=== PATIENT | male | born 1955 | race Caucasian/White ===

== ENCOUNTER 2020-12-13 07:28 | Outpatient (REF) | payer MEDICARE, SELFPAY ==
[2020-12-13 08:31] LABS: Hematocrit 44.6 % (42-52); Mean Corpuscular HGB Conc 33.6 g/dl (31.0-36.0); Mean Corpuscular Hemoglobin 29.5 pg (27.0-33.0); Mean Corpuscular Volume 87.6 fL (80-98); Mean Platelet Volume 9.6 fL (9.4-12.4); Platelet Count 255 X10*3/uL (160-400); Red Blood Count 5.09 X10*6/uL (4.60-5.80); Red Cell Distribution Width 13.5 % (11.0-16.0); White Blood Count 7.7 X10*3/uL (4.8-10.8)
[2020-12-13 08:41] LABS: Estimated Average Glucose 186 mg/dL; Hemoglobin A1c % 8.1 %
[2020-12-13 08:54] LABS: Creatinine Urine 138.55 mg/dL; Microalbum/Creatinine Ratio Ur 29.5 ug/mg cr
[2020-12-13 09:04] LABS: Alanine Aminotransferase 21 U/L (0-40); Albumin Level 4.3 g/dL (3.5-5.0); Alkaline Phosphatase 47 U/L (39-117); Anion Gap 14 (12-20); Aspartate Amino Transferase 14 U/L (5-37); Bilirubin Total 0.7 mg/dL (0.0-1.0); Blood Urea Nitrogen 16 mg/dL (9-16); Calcium 9.3 mg/dL (8.4-10.2); Carbon Dioxide 26 mmol/L (22-29); Chloride 103 mmol/L (96-108); Cholesterol 181 mg/dL; Estimated Glomerular Filt Rate > 60; Glucose Fasting 132 mg/dL (60-99); HDL Cholesterol 44 mg/dL; LDL Cholesterol Calculated 109 mg/dl; Potassium 4.8 mmol/L (3.3-5.1); Sodium 138 mmol/L (135-145); Total Protein 6.1 g/dL (6.5-8.0); Triglycerides 144 mg/dL
[2020-12-13 09:12] LABS: Prostate Specific Antigen Scr 0.37 ng/mL (<0.05-4.0); TSH reflex Free T4 1.07 uIU/mL (0.32-4.0)
== END 2020-12-13 07:29 | disposition home or self-care (01) ==
LOC: HO.LAB 07:28
PROVIDERS: PCP Physician Assistant; Visit Provider Physician Assistant
DX: E11.65 Type 2 diabetes mellitus with hyperglycemia (principal); Z79.4 Long term (current) use of insulin; I10 Essential (primary) hypertension; Z12.5 Encounter for screening for malignant neoplasm of prostate
CPT/HCPCS: 36415; 80053; 80061; 82043; 83036; 84153; 84443; 85027

== ENCOUNTER 2021-07-14 07:04 | Outpatient (REF) | payer MEDICARE, SELFPAY ==
[2021-07-14 08:08] LABS: Hematocrit 44.1 % (42-52); Hemoglobin 14.8 g/dl (14.0-18.0); Mean Corpuscular HGB Conc 33.6 g/dl (31.0-36.0); Mean Corpuscular Hemoglobin 29.4 pg (27.0-33.0); Mean Corpuscular Volume 87.7 fL (80-98); Mean Platelet Volume 9.8 fL (9.4-12.4); Platelet Count 255 X10*3/uL (160-400); Red Blood Count 5.03 X10*6/uL (4.60-5.80); Red Cell Distribution Width 13.4 % (11.0-16.0); White Blood Count 8.5 X10*3/uL (4.8-10.8)
[2021-07-14 08:32] LABS: Alanine Aminotransferase 18 U/L (0-40); Albumin Level 4.3 g/dL (3.5-5.0); Alkaline Phosphatase 48 U/L (39-117); Anion Gap 14 (12-20); Aspartate Amino Transferase 10 U/L (5-37); Bilirubin Total 0.7 mg/dL (0.0-1.0); Blood Urea Nitrogen 22 mg/dL (9-16); Calcium 9.5 mg/dL (8.4-10.2); Carbon Dioxide 24 mmol/L (22-29); Chloride 104 mmol/L (96-108); Cholesterol 195 mg/dL; Estimated Glomerular Filt Rate > 60; Glucose Fasting 133 mg/dL (60-99); HDL Cholesterol 47 mg/dL; LDL Cholesterol Calculated 109 mg/dl; Potassium 4.6 mmol/L (3.3-5.1); Sodium 137 mmol/L (135-145); Total Protein 6.2 g/dL (6.5-8.0); Triglycerides 198 mg/dL
[2021-07-14 08:55] LABS: Prostate Specific Antigen Scr 0.39 ng/mL (<0.05-4.0); TSH reflex Free T4 1.47 uIU/mL (0.32-4.0)
[2021-07-14 09:46] LABS: Creatinine Urine 152.94 mg/dL; Microalbum/Creatinine Ratio Ur 20.2 ug/mg cr
== END 2021-07-14 07:05 | disposition home or self-care (01) ==
LOC: HO.LAB 07:04
PROVIDERS: PCP Physician Assistant; Visit Provider Physician Assistant
DX: E11.65 Type 2 diabetes mellitus with hyperglycemia (principal); I10 Essential (primary) hypertension; Z12.5 Encounter for screening for malignant neoplasm of prostate; Z79.4 Long term (current) use of insulin
CPT/HCPCS: 36415; 80053; 80061; 82043; 84153; 84443; 85027

== ENCOUNTER 2021-12-09 06:26 | Outpatient (REF) | payer MEDICARE, SELFPAY ==
[2021-12-09 07:04] LABS: Hematocrit 45.9 % (42.0-52.0); Hemoglobin 15.3 g/dl (14.0-18.0); Mean Corpuscular HGB Conc 33.3 g/dl (31.0-36.0); Mean Corpuscular Hemoglobin 29.2 pg (27.0-33.0); Mean Corpuscular Volume 87.6 fL (80.0-98.0); Mean Platelet Volume 9.3 fL (9.4-12.4); Platelet Count 284 X10*3/uL (160-400); Red Blood Count 5.24 X10*6/uL (4.60-5.80); White Blood Count 10.1 X10*3/uL (4.8-10.8)
[2021-12-09 07:42] LABS: Alanine Aminotransferase 15 U/L (0-40); Albumin Level 4.4 g/dL (3.5-5.0); Alkaline Phosphatase 51 U/L (39-117); Anion Gap 13 (12-20); Aspartate Amino Transferase 11 U/L (5-37); Bilirubin Total 0.4 mg/dL (0.0-1.0); Blood Urea Nitrogen 22 mg/dL (9-16); Carbon Dioxide 26 mmol/L (22-29); Chloride 105 mmol/L (96-108); Cholesterol 195 mg/dL; Estimated Glomerular Filt Rate > 60; Glucose Fasting 127 mg/dL (60-99); HDL Cholesterol 44 mg/dL; LDL Cholesterol Calculated 107 mg/dl; Potassium 4.2 mmol/L (3.3-5.1); Sodium 140 mmol/L (135-145); Total Protein 6.5 g/dL (6.5-8.0); Triglycerides 224 mg/dL
[2021-12-09 08:05] LABS: TSH reflex Free T4 1.72 uIU/mL (0.32-4.0)
[2021-12-09 08:20] LABS: Estimated Average Glucose 209 mg/dL; Hemoglobin A1c % 8.9 %
[2021-12-09 10:10] LABS: Microalbum/Creatinine Ratio Ur 24.8 ug/mg cr
== END 2021-12-09 06:27 | disposition home or self-care (01) ==
LOC: HO.LAB 06:26
PROVIDERS: PCP Physician Assistant; Visit Provider Physician Assistant
DX: I10 Essential (primary) hypertension (principal); E11.65 Type 2 diabetes mellitus with hyperglycemia; Z79.4 Long term (current) use of insulin
CPT/HCPCS: 36415; 80053; 80061; 82043; 83036; 84443; 85027

== ENCOUNTER 2021-12-22 10:09 | Outpatient (REF) | payer MEDICARE, SELFPAY ==
--- NOTE | ~2021-12-22 | US_ITS ---
EXAMINATION: US RETROPERITONEAL LIMITED (AORTA) CLINICAL INFORMATION: Screening. History of smoking.. COMPARISON: None TECHNIQUE: Minor-scale, color Doppler and spectral Doppler evaluation of the abdominal aorta. FINDINGS: The aorta is atherosclerotic. The measurements of the aorta in maximum AP and transverse dimensions respectively are as follows: Proximal: 2.9 x 2.8 cm. Mid: 2.3 x 2.4 cm. Distal: 1.7 x 1.7 cm. PSV: 84 cm/s. The measurements of the common iliac arteries in maximum AP and TRV dimensions are as follows: Right Common Iliac Artery: 1.1 x 1.0 cm. Left Common Iliac Artery: 1.1 x 1.1 cm. US/US aorta IMPRESSION: Negative for abdominal aortic aneurysm.
--- NOTE | ~2021-12-22 | US_ITS ---
EXAMINATION: COLOR-FLOW DUPLEX IMAGING OF THE UNILATERAL RIGHT LOWER EXTREMITY ARTERIAL SYSTEM. VELOCITY MEASUREMENTS THROUGHOUT THE FEMORAL ARTERIES Interventional Radiologist: Chirag Braswell M.D., F.S.I.R., F.A.C.R. CLINICAL INFORMATION: This is a 66-year-old male with a history of hypertension, smoking, hyperlipidemia, diabetes. Peripheral vascular disease. Claudication. TECHNIQUE: Color-flow duplex imaging with spectral waveform analysis was performed with velocity measurements in the right lower extremity only. RIGHT FEMORAL RUNOFF VELOCITIES: The right common femoral artery measures 261 cm/s and biphasic. The right profunda femoral artery is 294 cm/s and is biphasic. Right proximal superficial femoral artery measures 264 cm/s and biphasic. Mid superficial femoral artery is 123 cm/s and biphasic. Distal right superficial femoral artery measures 101 cm/s and is biphasic. Right popliteal velocity measures 97 cm/s and is biphasic. The posterior tibial artery velocity measures 123 cm/s and was biphasic. The anterior tibial artery velocity measures 21 cm/s and is monophasic. US/US arterial duplex LE RT IMPRESSION: 1. There are elevated velocities in the right common femoral artery, right profunda femoral artery and proximal right superficial femoral artery with biphasic waveforms. Turbulence is evident in the area. This is suspicious for hemodynamically significant stenosis. .
--- NOTE | ~2021-12-22 | US_ITS ---
EXAMINATION: US VENOUS ULTRASOUND WITH DOPPLER LOWER EXTREMITY, RIGHT CLINICAL INFORMATION: Right leg pain. COMPARISON: None TECHNIQUE: Ultrasound of the deep veins is performed from the hip to the calf with compression sonography and color and pulse Doppler assessment. Spectral analysis with color-flow imaging is performed. FINDINGS: There is normal venous compression and respiratory variation and augmented flow. The visualized common femoral vein, superficial femoral vein, profunda femoral vein, popliteal vein, and the trifurcation region shows no evidence of deep venous thrombosis. There is no significant popliteal fossa cyst. If the patient's symptoms persist, followup ultrasound in 5 days 7 days might be of value to exclude proximal propagation from a non-visualized calf vein. US/US venous duplex LE RT IMPRESSION: No DVT demonstrated in the right lower extremity.
== END 2021-12-22 10:10 | disposition home or self-care (01) ==
LOC: HO.US 10:09
PROVIDERS: PCP Physician Assistant; Visit Provider Physician Assistant
DX: I73.9 Peripheral vascular disease, unspecified (principal); I10 Essential (primary) hypertension; E78.5 Hyperlipidemia, unspecified; E11.9 Type 2 diabetes mellitus without complications; F17.200 Nicotine dependence, unspecified, uncomplicated
CPT/HCPCS: 76775; 93926; 93971

== ENCOUNTER → 2022-08-25 13:05 | Outpatient (BNVA) | payer MEDICARE, SELFPAY | PROVIDERS: PCP Physician Assistant; Visit Provider Nurse Practitioner Family | DX: Z12.11 Encounter for screening for malignant neoplasm of colon (principal) | CPT/HCPCS: 99202 ==

== ENCOUNTER 2022-11-17 10:27 | Day surgery (SDC) | payer MEDICARE, SELFPAY ==
[2022-11-10 15:48] VITALS: BMI 25.8
--- NOTE | 2022-11-17 10:42 | MHC.SHP ---
Pre-Procedural Eval Section A Date of Service: 11/17/22 Section B Chief Complaint: pos cologuard test Relevant Family History (Specify if Yes): No Relevant Social History: None Present Medications: see Short Stay Collaborative assessment Medical History: Significant History (hypertension, type 2 diabetes.) History of Previous Operations: No relevant previous surgery Allergies: Allergies Allergy/AdvReac Type Severity Reaction Status Date / Time No Known Allergies Allergy Verified 11/10/22 15:40 Review of Systems Sugical H&P ROS: Negative: Constitution, Cardiovascular, Respiratory, Neurological, Psychiatric, Hem-Onc, Allergic/Immunologic, Gastrointestinal, Genitourinary, Musculoskeletal, Integumentary, Endocrine and Eyes/Ears/Nose/Throat Exam Surgical H&P Exam: Normal: HEENT, Normal: Heart, Normal: Lungs, Normal: Extremities, Normal: Abdomen, Normal: Skin and Normal: Neurological Plan Diagnosis/Plan: Unchanged I have reviewed the history and physical and performed a pertinent physical examination on my patient. No changes have occurred unless specified. Time Spent With Patient Time: Total time managing care of this patient today ____ minutes.
[2022-11-17 10:48] VITALS: BP 127/85; PULSE 92; RESP 16; TEMP 36.2; O2SAT 96; BMI 25.0
[2022-11-17 10:49] LABS: Glucose, Whole Blood 180 mg/dL (60-115)
[2022-11-17] MEDS: Lactated Ringers 1,000 ML 50 ML IVCONT (10:54)
--- NOTE | 2022-11-17 11:28 | HO.ANESPROP2 ---
HPI - Anesthesia Eval Consult details Narrative: 67 yo male patient for Colonoscopy PMFSH Active Problems Active Problems: All Active Problems (Updated 11/17/22 @ 11:20 by Dot Tesfaye MD) HTN (hypertension) (Acute) Type 2 diabetes mellitus (Acute) Annual physical exam (Acute) HLD (hyperlipidemia) (Acute) Screening for AAA (abdominal aortic aneurysm) (Acute)- USS Negative for AAA Former cigarette smoker (Acute) Claudication of right lower extremity (Acute) Colon cancer screening (Acute) Positive colorectal cancer screening using Cologuard test (Acute) PVD Past Medical History Medical History Diabetes HTN (hypertension) Family History Family History Mother Hypertension Father Hypertension Stroke Family history of problems with anesthesia: No Surgical History Surgical History Hx of colonoscopy No pertinent past surgical history History of Problems with Anesthesia: No Social History Social History Housing: House Alcohol intake: former Patient Tobacco Use Status: Former Tobacco user Tobacco use type: Cigarette e-Cigarette/Vaping Use: Never Used Second Hand Smoke Exposure: No Substance Use Type: Marijuana Have you been hit, kicked, punched, or otherwise hurt by someone within the past year? If so, by whom?: No Are you DNR?: No Advance Directives: No Advance Directives Information Provided: Yes Advance Directives on File: No Recently lost weight without trying: No Eating poorly because of decreased appetite: No Nutrition Risks: No Nutritional Risk service: No Current occupational status: retired Current occupation: [employer]. Cognitive needs: No Hearing needs: No Vision needs: No Meds Allergies Allergy/AdvReac Type Severity Reaction Status Date / Time No Known Allergies Allergy Verified 11/10/22 15:40 Active Medications: Current Medications Lactated Ringer's (Lr) 1,000 mls @ 50 mls/hr IVCONT .Q20H KATHERIN Last Admin: 11/17/22 10:54 Dose: 50 mls/hr Home Medications Medication Instructions Recorded Confirmed Last Taken Type glimepiride 4 mg tablet 4 mg PO BID 12/03/20 11/10/22 Unknown History metformin 1,000 mg tablet 1,000 mg PO BID 12/03/20 11/10/22 Unknown History pen needle, diabetic 32 gauge x #50 ea 12/03/20 06/03/22 Unknown History insulin glargine 100 unit/mL (3 18 unit subcut BEDTIME 06/03/21 11/10/22 Unknown History mL) subcutaneous pen Exam Exam Date and Time: November 17, 2022 1128 Height,Weight and Vital Signs: Height 5 ft 7 in Weight 72.575 kg Last Vital Signs Temp 97.1 F 11/17/22 10:48 Pulse 92 11/17/22 10:48 Resp 16 11/17/22 10:48 BP 127/85 11/17/22 10:48 Pulse Ox 96 11/17/22 10:48 O2 Del Method 11/17/22 10:48 Pertinent Lab Results Pertinent Lab Results: Laboratory Tests 11/17/22 10:46 POC Glucose 180 H Airway Mallampati Class: II TM Dist: >3cm Neck ROM: Full Denture: Upper and Lower Heart: RRR Lungs: CTAB Assessment and Plan Assessment Anesthesia Assessment: Anesthesia Plan Discussed and Chart Reviewed Final Anesthetic Review Family History of Problems with Anesthesia: No History of Problems with Anesthesia: No NPO: Yes ASA Class: II Final Preanesthetic Review: No Changes in Pt Med Stat, Meds/Allgs Chart Reviewed, Consent Obtained/Reviewed and Anes Risks/Benef Reviewed Patient Risk: Intermediate Procedure Risk: Low Assessment/Block/Sedation in SS: Assess/Block/Sedation-SS Anesthetic Plan Anesthetic Plan: MAC: Disposition: Standard PACU
--- NOTE | 2022-11-17 11:56 | W.PM.OPN ---
Operative Note Operative Note Date of Service: 11/17/22 Narrative: Operative Information Procedure Description: Colonoscopy Indication: pos cologuard test Anesthesia: MAC COLONOSCOPY Instrument: Olympus variable stiffness pediatric scope 190L Colonoscopy Monitoring: Vital signs and clinical assessment, continuous EKG monitoring, Pulse oximetry, Carbon Dioxide monitoring and blood pressure monitoring were done throughout the procedure. Colon withdrawal time was 9 minutes. Procedure: The patient was placed in the left lateral decubitis position and pre-procedure medications were administered. After a digital rectal examination of the ano-rectum, the video colonoscope was inserted into the rectum and advanced through the colon to the cecum/TI. The colonoscope was slowly withdrawn in a retrograde panoramic fashion and the colon mucosa was carefully examined including a retroflexed view of the rectum. Findings and interventions are described below. Procedure Difficulty: easy Findings: Terminal Ileum-normal Cecum:normal Ascending Colon: few diverticula noted Transverse Colon -normal Descending Colon:normal Sigmoid Colon: moderate diverticulosis, 8-10 mm sessile polyp removed with cold snare Rectum: Retroflexion with small internal hemorrhoids, grade I Anorectum - normal Colon preparation: [place] Bowel Preparation Scale Right colon; 2 Transverse colon: 2 Left colon; 2 (0 = Unprepared colon segment with mucosa not seen due to solid stool that cannot be cleared. 1 = Portion of mucosa of the colon segment seen, but other areas of the colon segment not well seen due to staining, residual stool and/or opaque liquid. 2 = Minor amount of residual staining, small fragments of stool and/or opaque liquid, but mucosa of colon segment seen well. 3 = Entire mucosa of colon segment seen well with no residual staining, small fragments of stool or opaque liquid) Impression and Post Procedure Diagnosis: polyp internal hemorrhoids diverticular disease Plan: High fiber diet leaflet Avoid straining at stool, epsom salts and sitz bath, anusol supps or cream Repeat Colonoscopy in 5 years due to polyp removed today or earlier if clinically indicated Above findings were reviewed with the patient and relevant handouts were provided if indicated.
[2022-11-17 12:01] VITALS: BP 100/57; PULSE 77; RESP 16; TEMP 36.2; O2SAT 98
[2022-11-17 12:16] VITALS: BP 151/71; PULSE 71; RESP 18; TEMP 36.4; O2SAT 97
== END 2022-11-17 12:37 | disposition home or self-care (01) ==
PROVIDERS: PCP Physician Assistant; Visit Provider Internal Medicine Gastroenterology
PROC: 0DJD8ZZ Inspection of Lower Intestinal Tract, Via Natural or Artificial Opening Endoscopic (ICD-10-PCS; CPT 45378; principal; 2022-11-17 12:10)
DX: R19.5 Other fecal abnormalities (principal); D12.5 Benign neoplasm of sigmoid colon; K57.30 Diverticulosis of large intestine without perforation or abscess without bleeding; K64.0 First degree hemorrhoids; E78.5 Hyperlipidemia, unspecified; I10 Essential (primary) hypertension; E11.8 Type 2 diabetes mellitus with unspecified complications; Z79.4 Long term (current) use of insulin; Z79.899 Other long term (current) drug therapy; F12.90 Cannabis use, unspecified, uncomplicated; Z87.891 Personal history of nicotine dependence
CPT/HCPCS: 45385; 82947; 88305

== ENCOUNTER 2022-11-27 06:46 | Outpatient (REF) | payer MEDICARE, SELFPAY ==
[2022-11-27 08:00] LABS: Estimated Average Glucose 214 mg/dL; Hemoglobin A1c % 9.1 %
[2022-11-27 08:14] LABS: Alanine Aminotransferase 16 U/L (0-40); Anion Gap 15 (12-20); Aspartate Amino Transferase 10 U/L (5-37); Blood Urea Nitrogen 16 mg/dL (9-16); Calcium 9.8 mg/dL (8.4-10.2); Carbon Dioxide 27 mmol/L (22-29); Chloride 104 mmol/L (96-108); Estimated Glomerular Filt Rate > 60; Glucose Random 242 mg/dL (60-115); Potassium 4.7 mmol/L (3.3-5.1); Sodium 141 mmol/L (135-145)
[2022-11-27 08:37] LABS: Vitamin B12 880 pg/mL (200-900)
== END 2022-11-27 06:47 | disposition home or self-care (01) ==
LOC: HO.LAB 06:46
PROVIDERS: PCP Physician Assistant; Visit Provider Internal Medicine Endocrinology, Diabetes & Metabolism
DX: E11.40 Type 2 diabetes mellitus with diabetic neuropathy, unspecified (principal)
CPT/HCPCS: 36415; 80048; 82607; 83036; 84450; 84460

== ENCOUNTER → 2022-12-01 08:01 | Outpatient (BNVA) | payer MEDICARE, SELFPAY | PROVIDERS: PCP Physician Assistant; Visit Provider Nurse Practitioner Family | DX: K57.30 Diverticulosis of large intestine without perforation or abscess without bleeding (principal); D12.5 Benign neoplasm of sigmoid colon; Z98.890 Other specified postprocedural states | CPT/HCPCS: 99212 ==

== ENCOUNTER 2023-01-28 06:12 | Outpatient (REF) | payer MEDICARE, SELFPAY ==
[2023-01-28 07:32] LABS: Hematocrit 43.5 % (42.0-52.0); Hemoglobin 14.8 g/dl (14.0-18.0); Mean Corpuscular Volume 88.2 fL (80.0-98.0); Mean Platelet Volume 9.8 fL (9.4-12.4); Platelet Count 265 X10*3/uL (160-400); Red Blood Count 4.93 X10*6/uL (4.60-5.80); Red Cell Distribution Width 13.3 % (11.0-16.0); White Blood Count 10.3 X10*3/uL (4.8-10.8)
[2023-01-28 08:02] LABS: Microalbum/Creatinine Ratio Ur 66.6 ug/mg cr
[2023-01-28 08:04] LABS: Alanine Aminotransferase 20 U/L (0-40); Albumin Level 4.3 g/dL (3.5-5.0); Alkaline Phosphatase 55 U/L (39-117); Anion Gap 13 (12-20); Aspartate Amino Transferase 11 U/L (5-37); Bilirubin Total 0.5 mg/dL (0.0-1.0); Blood Urea Nitrogen 23 mg/dL (9-16); Calcium 9.7 mg/dL (8.4-10.2); Carbon Dioxide 28 mmol/L (22-29); Chloride 105 mmol/L (96-108); Cholesterol 176 mg/dL; Estimated Glomerular Filt Rate > 60; Glucose Fasting 181 mg/dL (60-99); HDL Cholesterol 42 mg/dL; LDL Cholesterol Calculated 75 mg/dl; Potassium 4.8 mmol/L (3.3-5.1); Sodium 141 mmol/L (135-145); Total Protein 6.1 g/dL (6.5-8.0); Triglycerides 298 mg/dL
== END 2023-01-28 06:13 | disposition home or self-care (01) ==
LOC: HO.LAB 06:12
PROVIDERS: PCP Physician Assistant; Visit Provider Physician Assistant
DX: E78.2 Mixed hyperlipidemia (principal)
CPT/HCPCS: 36415; 80053; 80061; 82043; 85027

== ENCOUNTER 2023-07-19 08:20 | Outpatient (AMB) | payer MEDICARE, SELFPAY ==
--- NOTE | 2023-07-19 08:23 | A.OFFPC_ITS ---
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 Operator Required: No Accompanied by: Self / Same As Patient Allergies No Known Allergies Allergy (Verified 07/19/23 08:32) Medication List - Last Reconciled 07/19/23 by Kyle Guthrie PA-C glimepiride 4 mg PO BID insulin glargine 18 units subcut BEDTIME lisinopril 20 mg PO DAILY metformin 1,000 mg PO BID pen needle, diabetic As directed simvastatin 10 mg PO DAILY 90 days Tobacco use date assessed: 01/20/23 Fall risk assessment: No Falls in past year Last assessed Fall Risk: 07/19/23 Dental Screening Dental Screen Date: 07/19/23 Did you have a dental visit in the last 12 months?: No Did you have a dental problem in the last 6 months where you did not have access to dental care?: No Was dental information given to patient?: Patient has dentist HPI f/u HTN/ DMII HPI Details Patient is a 67-year-old male here today for a follow-up visit.? Henrietta t has a past medical history significant for hypertension, type 2 diabetes. Concern--> reports having two ? Viral illnesses over the last 3 months that has caused him to lose 10 lb. Currently feeling better. ..DMII:? Patient is followed by [facility] endocrinology, not using continues glucose monitoring and has been having better glucose control. Has recently reduced his Lantus dose to 12 units. He is considering getting off on metformin. Does report having easy like fatigue ?? Neural claudication. Has been better since using warm compress over his legs Patient has follow-up with vascular and noted to have abnormal pulses.? Was sent for CT angiogram of lower extremity ? ..HTN: Blood pressure acceptable today in office.? Denies any chest discomfort, headaches, vision issues shortness of breath. PLAN: Advised to monitor blood pressures at home and if consistently above 140/90 will consider increase his lisinopril to 30 mg ..HLD:? Continues on statin therapy with out any side effect.? Most recent LDL at 107. Recent Cologuard was positive thus got colonoscopy in November of 2022 showing diverticular disease , tubular adenoma polyp , repeat 5 years Laboratory Tests 01/28/23 06:21 Creatinine 1.20 Triglycerides 298 Cholesterol 176 [facility] Medical History Diverticulosis Tubular adenoma HTN (hypertension) Diabetes Surgical History Hx of colonoscopy No pertinent past surgical history Family History Mother Hypertension Father Hypertension Stroke Social History Housing: House Alcohol intake: former Patient Tobacco Use Status: Former Tobacco user Tobacco use type: Cigarette e-Cigarette/Vaping Use: Never Used Second Hand Smoke Exposure: No Substance Use Type: Marijuana service: No Current occupational status: retired Current occupation: [email or web address]. Cognitive needs: No Hearing needs: No Vision needs: Yes Questionnaire Thrive Questionnaire Date Thrive assessed: 01/20/23 DEJAH-7 AMB Questionnaire DEJAH-7 Date DEJAH - 7 assessed: 01/20/23 Source: Developed by Drs. Uziel David, Ale Lea, Juan Carlos Evans and colleagues, with an educational jeaneth from [employer]. Review of Systems Const Denies headache(s) Eyes Denies loss of vision ENT Denies vertigo, Denies dizziness, Denies headache(s) and Denies sore throat Card Denies chest pain, Denies leg edema and Denies lightheadedness Resp Denies cough, Denies hemoptysis and Denies wheezing GI Denies abdominal pain, Denies melena, Denies constipation, Denies diarrhea and Denies vomiting Denies dysuria, Denies urinary frequency and Denies urinary urgency Musc Denies arthralgias, Denies joint swelling, Denies numbness and Denies tingling Neuro Denies Abnormal speech present, Denies behavioral changes, Denies vertigo, Denies dizziness, Denies headache(s), Denies loss of vision, Denies memory loss, Denies numbness and Denies tingling Psych Denies anxiety, Denies behavioral changes, Denies depression, Denies memory loss and Denies panic attacks Ramin/Lymph Denies easy bleeding and Denies easy bruising Aller/Immun Denies wheezing Physical exam (Primary Care) Vital Signs: Last Vital Signs Pulse 68 07/19/23 08:24 BP 130/64 07/19/23 08:24 Pulse Ox 97 07/19/23 08:24 Oxygen Delivery Method Room Air 07/19/23 08:24 BMI result Body Mass Index 23.8 Tobacco/Smoking Status: Tobacco use Status Tobacco use date assessed 01/20/23 07/19/23 08:30 Patient Tobacco Use Status Former Tobacco user 07/19/23 08:30 Tobacco use type Cigarette 07/19/23 08:30 e-Cigarette/Vaping Use Never Used 07/19/23 08:30 Thrive Assessment: Date of Thrive Assessment Date Thrive assessed 01/20/23 07/19/23 08:30 Const General: healthy appearing, no acute distress, alert and awake Nutritional Appearance: well nourished Orientation/consciousness: oriented to person, oriented to place and oriented to time HENMT Ears: TM's normal bilaterally General nose exam: Normal nasal mucous membranes and turbinates present Eyes Conjunctivae: conjunctivae normal Sclerae: sclerae normal Pupils: Equal, round and reactive pupils present Neck Neck: Yes no lymphadenopathy and Yes no JVD Thyroid: Thyroid normal Carotids: no bruits Resp Effort & Inspection: normal respiratory effort and not tachypneic Auscultation: no crackles, no rales, no rhonchi and no wheezes Cardio Rate: regular rate Rhythm: regular rhythm Heart sounds: no murmurs and normal S1 and S2 GI Palpation (GI): Soft to palpation, nontender, no hepatomegaly and no splenomegaly Auscultation: normal bowel sounds Skin General skin exam: no rashes or lesions noted and dry skin Neuro General: oriented to person, oriented to place and oriented to time Cranial nerves: Yes Equal, round and reactive pupils present Speech: No Abnormal speech present Gait exam (Neuro): Normal gait present Motor exam (neuro): no tremor noted Extrem Right upper extremity: full ROM Left upper extremity: full ROM Right lower extremity: full ROM; no edema Left lower extremity: full ROM; no edema Psych Mental Status: mental status grossly normal Speech and movement: Normal speech and movement present Affect: normal affect Attitude: cooperative Thought process: Normal thought process present Office Procedures Flu Questionnaire Does the patient have a severe egg allergy?: No Results AMB Hemoglobin A1c AMB Hemoglobin A1c 7.5 % Last Edit by STEPHANIE Najera on 07/19/23 08:3 3 Immunizations flu vacc [id number] 6mos up(PF) 60 mcg(15 mcgx4)/0.5 mL IM syringe Performing Provider: Kyle Guthrie PA-C [facility] [place] [facility] Documented (not given) by: STEPHANIE Najera on 07/19/23 08:56 Reason Not Given: Patient Refused Results Reviewed Results Reviewed: Laboratory Last Values Hgb A1c (Clinic) 7.5 % (4.0-6.0) H 07/19/23 08:23 Assessment and Plan Assessment & Plan (1) HTN (hypertension): Code(s): I10 - Essential (primary) hypertension Qualifiers: Hypertension type: essential hypertension Qualified Code(s): I10 - Essential (primary) hypertension Plan: Patient's blood pressure today in office acceptable. He has not been monitoring blood pressure at home. He denies any headaches, vision issues, chest pains or palpitations. Goal blood pressures to remain below 140/90 (2) Type 2 diabetes mellitus: Code(s): E11.9 - Type 2 diabetes mellitus without complications Qualifiers: Diabetes mellitus rn long term care insulin use: with rn long term care use Diabetes mellitus complication status: with hyperglycemia Qualified Code(s): E11.65 - Type 2 diabetes mellitus with hyperglycemia; Z79.4 - jail (current) use of insulin Plan: Patient followed by endocrinology (Dr Huston) .. Started using a continues glucose monitorf Today's A1c at 7.5.. He reports he has been a diabetic diet. Has reduced his Lantus dose to 12 units. Will continue to follow Endocrinology for management of his diabetes. Goal A1c to be below 7.0 (3) HLD (hyperlipidemia): Code(s): E78.5 - Hyperlipidemia, unspecified Qualifiers: Hyperlipidemia type: mixed hyperlipidemia Qualified Code(s): E78.2 - Mixed hyperlipidemia Plan: Patient continues on statin therapy without side effect. Continues to have his fasting lipid panel and his Endocrinology group. Goal LDL to be below 100 Orders: Orders AMB Hemoglobin A1c Today E11.9 - Type 2 diabetes mellitus without complications Influenza [id number] Immunization Today Z23 - Encounter for immunization Prostate Specific Antigen Scr Today Z12.5 - Encounter for screening for malignant neoplasm of prostate Coding Level of Care Code Est Pt Level 4 (88628) Diagnoses Essential hypertension I10 Hypertension type: essential hypertension Type 2 diabetes mellitus with hyperglycemia, with long-term current use of insulin E11.65; Z79.4 Diabetes mellitus rn long term care insulin use: with rn long term care use Diabetes mellitus complication status: with hyperglycemia Mixed hyperlipidemia E78.2 Hyperlipidemia type: mixed hyperlipidemia
[2023-07-19 08:24] VITALS: BP 130/64; PULSE 68; O2SAT 97; BMI 23.8
== END 2023-07-19 08:54 | disposition home or self-care (01) ==
PROVIDERS: Visit Provider Physician Assistant
DX: I10 Essential (primary) hypertension (principal); E11.65 Type 2 diabetes mellitus with hyperglycemia; Z79.4 Long term (current) use of insulin; E78.2 Mixed hyperlipidemia; Z23 Encounter for immunization; E11.9 Type 2 diabetes mellitus without complications
CPT/HCPCS: 83036; 90471; 99214

== ENCOUNTER 2023-07-27 08:14 | Outpatient (REF) | payer MEDICARE, SELFPAY | END 2023-07-27 08:15 | disposition home or self-care (01) | LOC: HO.LAB 08:14 | PROVIDERS: PCP Physician Assistant; Visit Provider Physician Assistant | DX: Z12.5 Encounter for screening for malignant neoplasm of prostate (principal) | CPT/HCPCS: 36415; 84153 ==

== ENCOUNTER 2024-01-17 08:09 | Outpatient (AMB) | payer MEDICARE, SELFPAY ==
[2024-01-17 08:18] VITALS: BP 158/72; PULSE 78; O2SAT 98; BMI 25.2
--- NOTE | 2024-01-17 08:18 | MHC.PC.OV ---
Vital Signs 01/17/24 08:18 Height 5 ft 7 in Weight 161 lb BMI 25.2 BP 158/72 H Blood Pressure Location Lt brachial Position Sitting Pulse 78 Pulse Source Pulse Oximeter Pulse Oximetry (%) 98 Oxygen Delivery Method Room Air Intake Visit Reasons: PE Allergies No Known Allergies Allergy (Verified 01/17/24 08:29) Medication List - Last Reconciled 01/17/24 by Kyle Guthrie PA-C glimepiride 4 mg PO BID insulin glargine 18 units subcut BEDTIME lisinopril 20 mg PO DAILY metformin 1,000 mg PO BID pen needle, diabetic As directed simvastatin 10 mg PO DAILY 90 days Tobacco use date assessed: 01/17/24 Fall risk assessment: 2 + Falls in past year Last assessed Fall Risk: 01/17/24 Dental Screening Dental Screen Date: 01/17/24 Did you have a dental visit in the last 12 months?: Yes Did you have a dental problem in the last 6 months where you did not have access to dental care?: No Was dental information given to patient?: Patient has dentist HPI PE HPI Details Patient is a 68-year-old male here today for a annual physical.? Patient has a past medical history significant for hypertension, type 2 diabetes. Concern--> reports he continues to have lower extremity weakness upon exertion. Has had a few falls over last 6 months during physical exertion. He reports he was skiing and did fall due to weakness in his legs. ..DMII:? Patient is followed by [facility] endocrinology, Todays A1c 7.3, Report getting blood sugars are 180 -200s.? Does report having easy like fatigue ?? Neural claudication. Has been better since using warm compress over his legs Patient has follow-up with vascular and noted to have abnormal pulses.? Was sent for CT angiogram of lower extremity ? ..HTN: Does check his blood pressure at home and reports normal readings of 120-130 systolic.? Today in office blood pressure slightly elevated.? Denies any chest discomfort, headaches, vision issues shortness of breath. PLAN: Advised to monitor blood pressures at home and if consistently above 140/90 will consider increase his lisinopril to 30 mg .. HLD:? Continues on statin therapy without any side effect.? Most recent LDL at 107. Recent Cologuard was positive thus got colonoscopy in November of 2022 showing diverticular disease , tubular adenoma polyp , repeat 5 years Vaccines: Up-to-date with COVID vaccine, pneumonia and tetanus vaccine, considering shingles vaccine PFSH Medical History Diverticulosis Tubular adenoma HTN (hypertension) Diabetes Surgical History Hx of colonoscopy No pertinent past surgical history Family History Mother Hypertension Father Hypertension Stroke Social History Housing: House Alcohol intake: former Patient Tobacco Use Status: Former Tobacco user Tobacco use type: Cigarette e-Cigarette/Vaping Use: Never Used Second Hand Smoke Exposure: No Substance Use Type: Marijuana service: No Current occupational status: retired Current occupation: [employer]. Cognitive needs: No Hearing needs: No Vision needs: Yes Questionnaire PHQ-9 Over the last 2 weeks, how often have you been bothered by any of the following problems? 1. Little interest or pleasure in doing things: not at all 2. Feeling down, depressed, or hopeless: not at all 3. Trouble falling or staying asleep, or sleeping too much: not at all 4. Feeling tired or having little energy: not at all 5. Poor appetite or overeating: not at all 6. Feeling bad about yourself - or that you are a failure or have let yourself or your family down: not at all 7. Trouble concentrating on things, such as reading the newspaper or watching television: not at all 8. Moving or speaking so slowly that other people could have noticed. Or the opposite - being so fidgety or restless that you have been moving around a lot more than usual: not at all 9. Thoughts that you would be better off or of hurting yourself in some way: not at all Total score: 0 Depression Screening Interpretation: Negative Depression Screening Done: Yes 05842 - PHQ-9 Billing: Yes Source: Developed by Drs. Uziel David, Ale Lea, Juan Carlos Evans and colleagues, with an educational jeaneth from [employer]. Thrive Questionnaire Date Thrive assessed: 01/17/24 I am a: Patient What is your living situation today?: I have a steady place to live Within the past 12 months, did the food you bought not last and you didn't have the money to get more?: Never true Within the past 12 months, did you worry whether your food would run out before you got money to buy more?: Never true Do you have trouble paying for medicines?: No Do you have trouble getting transportation to medical appointments?: No Do you have trouble paying your heating and electricity bill?: No Do you have trouble taking care of your child, family member or friend?: No Do you have trouble with day-to-day activities such as bathing, preparing meals, shopping, managing finances, etc.?: No Are you currently unemployed and looking for a job?: No Are you interested in more education?: No Currently or been in a relationship where the following occur: no concerns reported THRIVE Score: 0 AUDIT C Alcohol Use Questionnaire (AUDIT-C) 1. How often do you have a drink containing alcohol?: Never Total Score: 0 DEJAH-7 AMB Questionnaire DEJAH-7 Date DEJAH - 7 assessed: 01/17/24 Feeling nervous, anxious, or on edge: 0 = Not at all Not being able to stop or control worryin = Not at all Worrying too much about different things: 0 = Not at all Trouble relaxin = Not at all Being so restless that it is hard to sit still: 0 = Not at all Becoming easily annoyed or irritable: 0 = Not at all Feeling afraid as if something awful might happen: 0 = Not at all Total DEJAH-7 score (0-4 normal; 5-9 mild; 10-14 moderate; 15-21 severe): 0 Source: Developed by Drs. Uziel David, Ale Lea, Juan Carlos Evans and colleagues, with an educational jeaneth from [employer]. DEJAH-7 Assessment Billing DEJAH-7 Assessment Tool: DEJAH-7 Assessment 20530 Review of Systems Const Denies body aches, Denies chills, Denies excessive sweating, Denies fatigue, Denies fever(s) and Denies headache(s) Eyes Denies blurry vision ENT Denies dysphagia, Denies vertigo, Denies dizziness, Denies headache(s), Denies hearing loss and Denies tinnitus Card Denies chest pain, Denies chest pain with activity, Denies syncope, Denies irregular heart rhythm and Denies dyspnea Resp Denies chest congestion, Denies cough, Denies hemoptysis, Denies dyspnea and Denies wheezing GI Denies abdominal pain, Denies melena, Denies hematochezia, Denies coffee ground emesis, Denies dysphagia, Denies diarrhea, Denies nausea and Denies vomiting Denies difficulty urinating, Denies dysuria, Denies urinary frequency, Denies urinary hesitancy and Denies urinary urgency Musc Denies arthralgias, Denies limited range of motion, Denies muscle cramps and Denies muscle weakness Skin/Breast Denies rash and Denies skin ulcer Neuro Denies Abnormal speech present, Denies confusion, Denies vertigo, Denies dizziness, Denies syncope, Denies headache(s), Denies memory loss and Denies seizure-like activity Psych Denies anxiety, Denies confusion, Denies depression, Denies memory loss, Denies panic attacks and Denies paranoia Endo Denies excessive sweating, Denies fatigue, Denies flushing, Denies polydipsia and Denies polyuria Aller/Immun Denies wheezing Physical exam (Primary Care) Vital Signs: Last Vital Signs Pulse 78 01/17/24 08:18 BP 158/72 H 01/17/24 08:18 Pulse Ox 98 01/17/24 08:18 Oxygen Delivery Method Room Air 01/17/24 08:18 BMI result Body Mass Index 25.2 Tobacco/Smoking Status: Tobacco use Status Tobacco use date assessed 01/17/24 01/17/24 08:20 Patient Tobacco Use Status Former Tobacco user 01/17/24 08:20 Tobacco use type Cigarette 01/17/24 08:20 e-Cigarette/Vaping Use Never Used 01/17/24 08:20 PHQ-9: PHQ-9 Score PHQ-9: Total score 0 01/17/24 08:31 Depression Screening Interpretation: Negative Thrive Assessment: Date of Thrive Assessment Date Thrive assessed 01/17/24 01/17/24 08:20 Currently or been in a relationship where the following occur: no concerns reported Const General: cooperative, comfortable, no acute distress, alert and awake; No confusion Orientation/consciousness: oriented to person, oriented to place, patient oriented x3 and No confusion HENMT Head: Yes normocephalic Ears: external ears normal and TM's normal bilaterally Face and sinus: No sinus tenderness Mouth: Normal oral and palatal mucosa present and tongue normal Teeth and gingiva: dentition normal and gingiva normal Throat: Yes posterior oropharynx normal, Yes tonsils normal and Yes uvula midline Eyes Conjunctivae: conjunctivae normal Sclerae: sclerae normal Pupils: Equal, round and reactive pupils present EOM: EOMs intact bilaterally Direct Ophthalmoscopy: No no photophobia Neck Neck: Yes no lymphadenopathy, No tender and Yes no JVD Thyroid: Thyroid normal Carotids: no bruits Chest Chest palpation & inspection: no tenderness Resp Effort & Inspection: normal respiratory effort, no audible wheezes, not labored and no stridor Auscultation: no crackles, no rales, no rhonchi and no wheezes Cardio Jugular venous distension: no JVD Rate: regular rate, not bradycardic and not tachycardic Rhythm: regular rhythm Bruits: no carotid bruits Peripheral pulses: Peripheral pulses 2+ throughout GI Inspection: Yes normal to inspection, No abdominal wall ecchymosis and No visible herniation Palpation (GI): Soft to palpation, nontender, no guarding, not rigid and No hepatosplenomegaly present Auscultation: normoactive bowel sounds General: Yes no CVA tenderness Back/Spine/Pelvis Back: no CVA tenderness and No back tenderness Cervical Spine: cervical ROM normal Thoracic/Lumbar Spine: thoracic and lumbar spine normal to inspection, straight leg raise negative bilaterally, No thoraco-lumbar ROM limited and No lumbar spinal tenderness Skin Lesions: no lesions Rashes: no rashes Wounds: no wounds Neuro General: oriented to person, oriented to place, patient oriented x3, CN's II-XI intact bilaterally and No confusion Cranial nerves: Yes Equal, round and reactive pupils present and Yes Normal accommodation reflex present Cognition (Neuro): normal cognition Speech: No Abnormal speech present Gait exam (Neuro): Normal gait present Motor exam (neuro): 5/5 motor strength present throughout Extrem Right upper extremity: full ROM; no cyanosis Left upper extremity: full ROM; no cyanosis Right lower extremity: no edema Left lower extremity: no edema Psych Appearance: grossly normal Mental Status: mental status grossly normal Affect: normal affect Attitude: cooperative Thought process: Normal thought process present Results AMB Hemoglobin A1c AMB Hemoglobin A1c 7.3 % Last Edit by France Garza CMA on 01/17/24 08:34 Assessment and Plan Assessment & Plan (1) Annual physical exam: Code(s): Z00.00 - Encounter for general adult medical examination without abnormal findings (2) HTN (hypertension): Code(s): I10 - Essential (primary) hypertension Qualifiers: Hypertension type: essential hypertension Qualified Code(s): I10 - Essential (primary) hypertension Plan: Patient's blood pressure today elevated today in office. He reports drinking 2 cups of coffee this morning. He has not been monitoring blood pressure at home. He denies any headaches, vision issues, chest pains or palpitations. Goal blood pressures to remain below 140/90 (3) Type 2 diabetes mellitus: Code(s): E11.9 - Type 2 diabetes mellitus without complications Qualifiers: Diabetes mellitus terminal clerk insulin use: with retirement use Diabetes mellitus complication status: with hyperglycemia Qualified Code(s): E11.65 - Type 2 diabetes mellitus with hyperglycemia; Z79.4 - terminal clerk (current) use of insulin Plan: Patient followed by endocrinology (Dr Huston) .. Started using a continues glucose monitorf Today's A1c at 7.3.. He reports he has been a diabetic diet. Has reduced his Lantus dose to 14 units. He has not using a continues glucose monitor and does report having some hypoglycemic episodes at night. Will continue to follow Endocrinology for management of his diabetes. Goal A1c to be below 7.0 (4) HLD (hyperlipidemia): Code(s): E78.5 - Hyperlipidemia, unspecified Qualifiers: Hyperlipidemia type: mixed hyperlipidemia Qualified Code(s): E78.2 - Mixed hyperlipidemia Plan: Patient continues on statin therapy without side effect. Continues to have his fasting lipid panel and his Endocrinology group. Goal LDL to be below 100 (5) Claudication of right lower extremity: Code(s): I73.9 - Peripheral vascular disease, unspecified Plan: Continues to have lower extremity symptoms of claudication. Was followed by vascular though not followed up for CT angiogram. Will try medication for claudication. He is considering reestablishing with vascular surgeon for further evaluation and treatment . Orders: Orders AMB Hemoglobin A1c Today E11.9 - Type 2 diabetes mellitus without complications Microalbumin, Random (w Creat) Today I10 - Essential (primary) hypertension Complete Blood Count no Diff Today E11.65 - Type 2 diabetes mellitus with hyperglycemia, Z79.4 - terminal clerk (current) use of insulin Prostate Specific Antigen Scr Today E78.2 - Mixed hyperlipidemia, Z12.5 - Encounter for screening for malignant neoplasm of prostate Comprehensive [place]. Panel Fast Today I10 - Essential (primary) hypertension Lipid Panel Today E78.2 - Mixed hyperlipidemia Medications: New cilostazol 100 mg PO BID 30 days 60 tabs 0RF I73.9 - Peripheral vascular disease, unspecified Changed From insulin glargine 18 units subcut BEDTIME E78.2 - Mixed hyperlipidemia To insulin glargine 14 units subcut BEDTIME E78.2 - Mixed hyperlipidemia Coding Level of Care Code Est Pt Prev Care >65y(46141) Diagnoses Annual physical exam Z00.00 Essential hypertension I10 Hypertension type: essential hypertension Type 2 diabetes mellitus with hyperglycemia, with long-term current use of insulin E11.65; Z79.4 Diabetes mellitus terminal clerk insulin use: with terminal clerk use Diabetes mellitus complication status: with hyperglycemia Mixed hyperlipidemia E78.2 Hyperlipidemia type: mixed hyperlipidemia Claudication of right lower extremity I73.9 Additional Codes DEJAH-7 Assessment Billing - DEJAH-7 Assessment Tool: DEJAH-7 Assessment 50243 ([id number])
== END 2024-01-17 08:58 | disposition home or self-care (01) ==
PROVIDERS: PCP Physician Assistant; Visit Provider Physician Assistant
DX: Z00.00 Encounter for general adult medical examination without abnormal findings (principal); E11.65 Type 2 diabetes mellitus with hyperglycemia; Z79.4 Long term (current) use of insulin; I73.9 Peripheral vascular disease, unspecified; E11.51 Type 2 diabetes mellitus with diabetic peripheral angiopathy without gangrene; I10 Essential (primary) hypertension; E78.2 Mixed hyperlipidemia
CPT/HCPCS: 83036; 99397

== ENCOUNTER 2024-01-21 06:18 | Outpatient (REF) | payer MEDICARE, SELFPAY ==
[2024-01-21 07:02] LABS: Hemoglobin 14.7 g/dl (14.0-18.0); Mean Corpuscular HGB Conc 33.4 g/dl (31.0-36.0); Mean Corpuscular Hemoglobin 29.4 pg (27.0-33.0); Mean Platelet Volume 9.6 fL (9.4-12.4); Platelet Count 246 X10*3/uL (160-400); Red Cell Distribution Width 13.3 % (11.0-16.0); White Blood Count 7.8 X10*3/uL (4.8-10.8)
[2024-01-21 07:20] LABS: Alanine Aminotransferase 14 U/L (0-40); Albumin Level 4.2 g/dL (3.5-5.0); Alkaline Phosphatase 44 U/L (39-117); Anion Gap 14 (12-20); Aspartate Amino Transferase 10 U/L (5-37); Bilirubin Total 0.4 mg/dL (0.0-1.0); Blood Urea Nitrogen 22 mg/dL (9-16); Calcium 9.4 mg/dL (8.4-10.2); Carbon Dioxide 24 mmol/L (22-29); Chloride 106 mmol/L (96-108); Cholesterol 156 mg/dL (<200); Estimated Glomerular Filt Rate > 60; Glucose Fasting 210 mg/dL (60-99); HDL Cholesterol 47 mg/dL (>40); LDL Cholesterol Calculated 81 mg/dL (<100); Potassium 4.4 mmol/L (3.3-5.1); Sodium 140 mmol/L (135-145); Total Protein 6.5 g/dL (6.5-8.0); Triglycerides 141 mg/dL (<150)
[2024-01-21 07:42] LABS: Prostate Specific Antigen Scr 0.31 ng/mL (<0.05-4.0)
[2024-01-21 08:06] LABS: Creatinine Urine 150.35 mg/dL; Microalbum/Creatinine Ratio Ur 81.8 ug/mg cr (<30)
== END 2024-01-21 06:19 | disposition home or self-care (01) ==
LOC: HO.LAB 06:18
PROVIDERS: PCP Physician Assistant; Visit Provider Physician Assistant
DX: E11.65 Type 2 diabetes mellitus with hyperglycemia (principal); I10 Essential (primary) hypertension; E78.2 Mixed hyperlipidemia; Z79.4 Long term (current) use of insulin; Z12.5 Encounter for screening for malignant neoplasm of prostate
CPT/HCPCS: 36415; 80053; 80061; 82043; 82570; 84153; 85027

== ENCOUNTER 2024-01-28 14:20 | Outpatient (AMB) | payer MEDICARE, SELFPAY ==
[2024-01-28 14:22] VITALS: BP 158/60; PULSE 94; O2SAT 95; BMI 25.1
--- NOTE | 2024-01-28 14:22 | HO.NEPHOV_ITS ---
Vital Signs 01/28/24 14:22 Height 5 ft 7 in Weight 160 lb 8 oz BMI 25.1 BP 158/60 H Blood Pressure Location Lt brachial Position Sitting Pulse 94 Pulse Source Pulse Oximeter Pulse Oximetry (%) 95 Oxygen Delivery Method Room Air Intake Visit Reasons: Proteinuria Manager Discovery Required: No Accompanied by: Self / Same As Patient Allergies No Known Allergies Allergy (Verified 01/28/24 14:24) HPI Comments Details: I had the pleasure of seeing Lionel in consultation for his mildly proteinuric CKD as well as hypertension. He has diabetes for a long time. He denies any retinopathy but complaints of lower extremity vascular symptoms. He denies any coronary artery disease, congestive heart failure, CVA, CHF, renal artery stenosis, carotid stenosis. He has no epistaxis, photosensitivity, joint swellings, skin rashes, hematuria or pedal edema. He has been tolerating EMMA inhibitor. He has not on any SGLT2 inhibitor. He denies any chest pain, shortness of breath, paroxysmal nocturnal dyspnea, orthopnea or orthostatic symptoms. He denied any family history of renal diseases. He denies any new bone pain or history of renal calculi. [facility] Medical History Diverticulosis Tubular adenoma HTN (hypertension) Diabetes Surgical History Hx of colonoscopy No pertinent past surgical history Family History Mother Hypertension Father Hypertension Stroke Social History Housing: House Alcohol intake: former Patient Tobacco Use Status: Former Tobacco user Tobacco use type: Cigarette e-Cigarette/Vaping Use: Never Used Second Hand Smoke Exposure: No Substance Use Type: Marijuana service: No Current occupational status: retired Current occupation: [employer]. Cognitive needs: No Hearing needs: No Vision needs: Yes Physical Exam Vital Signs: Last Vital Signs Pulse 94 01/28/24 14:22 BP 158/60 H 01/28/24 14:22 Pulse Ox 95 01/28/24 14:22 Oxygen Delivery Method Room Air 01/28/24 14:22 BMI result Body Mass Index 25.1 Const General: comfortable and no acute distress Orientation/consciousness: patient oriented x3 HEENT Head: Yes normocephalic Mouth: Normal oral and palatal mucosa present Eyes EOM: EOMs intact bilaterally Neck Neck: Yes supple Resp Auscultation: clear to auscultation bilaterally Cardio Jugular venous distension: no JVD Rate: regular rate GI Palpation (GI): Soft to palpation Auscultation: normal bowel sounds General: Yes no CVA tenderness Back/Spine/Pelvis Back: no CVA tenderness Skin General skin exam: no rashes or lesions noted Neuro General: patient oriented x3 and moves all extremities Extrem General: Yes no pedal edema Results Reviewed Nephrology Results: Hgb 14.7 g/dl (14.0-18.0) 01/21/24 WBC 7.8 X10*3/uL (4.8-10.8) 01/21/24 Plt Count 246 X10*3/uL (160-400) 01/21/24 Sodium 140 mmol/L (135-145) 01/21/24 Potassium 4.4 mmol/L (3.3-5.1) 01/21/24 Chloride 106 mmol/L (96-108) 01/21/24 Carbon Dioxide 24 mmol/L (22-29) 01/21/24 BUN 22 mg/dL (9-16) H 01/21/24 Creatinine 1.09 mg/dL (0.5-1.4) 01/21/24 Calcium 9.4 mg/dL (8.4-10.2) 01/21/24 Urine Creatinine 150.35 mg/dL 01/21/24 Assessment & Plan Assessment & Plan (1) HTN (hypertension): Code(s): I10 - Essential (primary) hypertension Category: Medical Qualifiers: Hypertension type: essential hypertension Qualified Code(s): I10 - Essential (primary) hypertension (2) Diabetic nephropathy associated with type 2 diabetes mellitus: Code(s): E11.21 - Type 2 diabetes mellitus with diabetic nephropathy Category: Medical (3) CKD (chronic kidney disease) stage 2, GFR 60-89 ml/min: Code(s): N18.2 - Chronic kidney disease, stage 2 (mild) Category: Medical Plan Lionel has 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 He is on EMMA inhibitor. We will continue to maximize his lisinopril if his renal functions , hemodynamics and serum potassium permit. He has a great candidate for SGLT2 inhibitor. I also plan to do Doppler of his renal arteries with time. I ordered blood work in follow-up. I increased his lisinopril to 30 mg daily. I asked him to avoid nonsteroidal anti-inflammatories and maintain good hydration. I answered all his questions. Follow-up appointment given. Orders: Orders Blood Urea Nitrogen 01/28/24 E11. - Type 2 diabetes mellitus with diabetic nephropathy, I10 - Essential (primary) hypertension Creatinine 01/28/24. - Type 2 diabetes mellitus with diabetic nephropathy, I10 - Essential (primary) hypertension Electrolytes 01/28/24. - Type 2 diabetes mellitus with diabetic nephropathy, I10 - Essential (primary) hypertension Protein Creatinine Ratio, Ur 01/28/24. - Type 2 diabetes mellitus with diabetic nephropathy, I10 - Essential (primary) hypertension Immunofixation Pnl, Serum 01/28/24. - Type 2 diabetes mellitus with diabetic nephropathy, I10 - Essential (primary) hypertension Medications: Changed From lisinopril 20 mg PO DAILY 90 tabs 3RF I10 - Essential (primary) hypertension To lisinopril 30 mg (1.5 x 20 mg) PO DAILY 90 tabs 3RF I10 - Essential (primary) hypertension Coding Level of Care Code New Pt Level 4 (77400) Diagnoses Essential hypertension I10 Hypertension type: essential hypertension Diabetic nephropathy associated with type 2 diabetes mellitus E11. CKD (chronic kidney disease) stage 2, GFR 60-89 ml/min N18.2
== END 2024-01-28 14:42 | disposition home or self-care (01) ==
PROVIDERS: PCP Physician Assistant; Referring Provider Physician Assistant; Visit Provider Internal Medicine Nephrology
DX: I12.9 Hypertensive chronic kidney disease with stage 1 through stage 4 chronic kidney disease, or unspecified chronic kidney disease (principal); E11.21 Type 2 diabetes mellitus with diabetic nephropathy; N18.2 Chronic kidney disease, stage 2 (mild)
CPT/HCPCS: 99204

== ENCOUNTER → 2024-01-28 14:20 | Outpatient (BNVA) | payer MEDICARE, SELFPAY | PROVIDERS: PCP Physician Assistant; Referring Provider Physician Assistant; Visit Provider Internal Medicine Nephrology | DX: I10 Essential (primary) hypertension (principal); E11.21 Type 2 diabetes mellitus with diabetic nephropathy | CPT/HCPCS: 99202 ==

== ENCOUNTER 2024-03-31 10:36 | Outpatient (AMB) | payer MEDICARE, SELFPAY ==
[2024-03-31 10:48] VITALS: BP 134/54; PULSE 71; O2SAT 97; BMI 23.9
--- NOTE | 2024-03-31 10:48 | HO.NEPHOV_ITS ---
Vital Signs 03/31/24 10:48 Height 5 ft 7 in Weight 152 lb 8 oz BMI 23.9 BP 134/54 L Blood Pressure Location Rt brachial Position Sitting Pulse 71 Pulse Source Pulse Oximeter Pulse Oximetry (%) 97 Oxygen Delivery Method Room Air Intake Visit Reasons: 2 mon follow up/ Conf Manager Sustainability Required: No Accompanied by: Self / Same As Patient Allergies No Known Allergies Allergy (Verified 03/31/24 10:50) HPI Comments Details: I had the pleasure of seeing Lionel in follow for his mildly proteinuric CKD as well as hypertension. He has diabetes for a long time. He denies any retinopathy but complaints of lower extremity vascular symptoms. He denies any coronary artery disease, congestive heart failure, CVA, CHF, renal artery stenosis, carotid stenosis. He has no epistaxis, photosensitivity, joint swellings, skin rashes, hematuria or pedal edema. He has been tolerating EMMA inhibitor. He is not on any SGLT2 inhibitor. He denies any chest pain, shortness of breath, paroxysmal nocturnal dyspnea, orthopnea or orthostatic symptoms. He denied any family history of renal diseases. He denies any new bone pain or history of renal calculi. [facility] Medical History Diverticulosis Tubular adenoma HTN (hypertension) Diabetes Surgical History Hx of colonoscopy No pertinent past surgical history Family History Mother Hypertension Father Hypertension Stroke Social History Housing: House Alcohol intake: former Patient Tobacco Use Status: Former Tobacco user Tobacco use type: Cigarette e-Cigarette/Vaping Use: Never Used Second Hand Smoke Exposure: No Substance Use Type: Marijuana service: No Current occupational status: retired Current occupation: [employer]. Cognitive needs: No Hearing needs: No Vision needs: Yes Physical Exam Vital Signs: Last Vital Signs Pulse 71 03/31/24 10:48 BP 134/54 L 03/31/24 10:48 Pulse Ox 97 03/31/24 10:48 Oxygen Delivery Method Room Air 03/31/24 10:48 BMI result Body Mass Index 23.9 Const General: comfortable and no acute distress Orientation/consciousness: patient oriented x3 HEENT Head: Yes normocephalic Mouth: Normal oral and palatal mucosa present Eyes EOM: EOMs intact bilaterally Neck Neck: Yes supple Resp Auscultation: clear to auscultation bilaterally Cardio Jugular venous distension: no JVD Rate: regular rate GI Palpation (GI): Soft to palpation Auscultation: normal bowel sounds General: Yes no CVA tenderness Back/Spine/Pelvis Back: no CVA tenderness Skin General skin exam: no rashes or lesions noted Neuro General: patient oriented x3 and moves all extremities Extrem General: Yes no pedal edema Results Reviewed Nephrology Results: Hgb 14.7 g/dl (14.0-18.0) 01/21/24 WBC 7.8 X10*3/uL (4.8-10.8) 01/21/24 Plt Count 246 X10*3/uL (160-400) 01/21/24 Sodium 140 mmol/L (135-145) 01/21/24 Potassium 4.4 mmol/L (3.3-5.1) 01/21/24 Chloride 106 mmol/L (96-108) 01/21/24 Carbon Dioxide 24 mmol/L (22-29) 01/21/24 BUN 22 mg/dL (9-16) H 01/21/24 Creatinine 1.09 mg/dL (0.5-1.4) 01/21/24 Calcium 9.4 mg/dL (8.4-10.2) 01/21/24 Urine Creatinine 150.35 mg/dL 01/21/24 Assessment & Plan Assessment & Plan (1) CKD (chronic kidney disease) stage 2, GFR 60-89 ml/min: Code(s): N18.2 - Chronic kidney disease, stage 2 (mild) Category: Medical (2) Diabetic nephropathy associated with type 2 diabetes mellitus: Code(s): E11.21 - Type 2 diabetes mellitus with diabetic nephropathy Category: Medical (3) HTN (hypertension): Code(s): I10 - Essential (primary) hypertension Category: Medical Qualifiers: Hypertension type: essential hypertension Qualified Code(s): I10 - Essential (primary) hypertension Plan Lionel has 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 He is on EMMA inhibitor. I increased his lisinopril to 20 mg bid . He has a great candidate for SGLT2 inhibitor. I also plan to do Doppler of his renal arteries with time. I ordered blood work in follow-up. I asked him to avoid nonsteroidal anti-inflammatories and maintain good hydration. I answered all his questions. Follow-up appointment given. Orders: Orders Creatinine 4 Months E11.21 - Type 2 diabetes mellitus with diabetic nephropathy, I10 - Essential (primary) hypertension, N18.2 - Chronic kidney disease, stage 2 (mild) Blood Urea Nitrogen 4 Months E11.21 - Type 2 diabetes mellitus with diabetic nephropathy, I10 - Essential (primary) hypertension, N18.2 - Chronic kidney disease, stage 2 (mild) Electrolytes 4 Months E11.21 - Type 2 diabetes mellitus with diabetic nephropathy, I10 - Essential (primary) hypertension, N18.2 - Chronic kidney disease, stage 2 (mild) Creatinine 1 Month E11.21 - Type 2 diabetes mellitus with diabetic nephropathy, I10 - Essential (primary) hypertension, N18.2 - Chronic kidney disease, stage 2 (mild) Blood Urea Nitrogen 1 Month E11.21 - Type 2 diabetes mellitus with diabetic nephropathy, I10 - Essential (primary) hypertension, N18.2 - Chronic kidney disease, stage 2 (mild) Electrolytes 1 Month E11.21 - Type 2 diabetes mellitus with diabetic nephropathy, I10 - Essential (primary) hypertension, N18.2 - Chronic kidney disease, stage 2 (mild) Protein Creatinine Ratio, Ur 1 Month E11.21 - Type 2 diabetes mellitus with diabetic nephropathy, I10 - Essential (primary) hypertension, N18.2 - Chronic kidney disease, stage 2 (mild) Protein Creatinine Ratio, Ur 4 Months E11.21 - Type 2 diabetes mellitus with diabetic nephropathy, I10 - Essential (primary) hypertension, N18.2 - Chronic kidney disease, stage 2 (mild) Coding Level of Care Code Est Pt Level 4 (65919) Diagnoses CKD (chronic kidney disease) stage 2, GFR 60-89 ml/min N18.2 Diabetic nephropathy associated with type 2 diabetes mellitus E11.21 Essential hypertension I10 Hypertension type: essential hypertension
== END 2024-03-31 11:08 | disposition home or self-care (01) ==
PROVIDERS: PCP Physician Assistant; Visit Provider Internal Medicine Nephrology
DX: I12.9 Hypertensive chronic kidney disease with stage 1 through stage 4 chronic kidney disease, or unspecified chronic kidney disease (principal); E11.22 Type 2 diabetes mellitus with diabetic chronic kidney disease; N18.2 Chronic kidney disease, stage 2 (mild)
CPT/HCPCS: 99214

== ENCOUNTER → 2024-03-31 10:36 | Outpatient (BNVA) | payer MEDICARE, SELFPAY | PROVIDERS: PCP Physician Assistant; Visit Provider Internal Medicine Nephrology | DX: I12.9 Hypertensive chronic kidney disease with stage 1 through stage 4 chronic kidney disease, or unspecified chronic kidney disease (principal); E11.22 Type 2 diabetes mellitus with diabetic chronic kidney disease; N18.2 Chronic kidney disease, stage 2 (mild); Z79.899 Other long term (current) drug therapy | CPT/HCPCS: 99212 ==

== ENCOUNTER 2024-04-27 07:27 | Outpatient (REF) | payer MEDICARE, SELFPAY ==
[2024-04-27 08:42] LABS: Anion Gap 12 (12-20); Blood Urea Nitrogen 22 mg/dL (9-16); Carbon Dioxide 26 mmol/L (22-29); Chloride 107 mmol/L (96-108); Estimated Glomerular Filt Rate > 60; Potassium 4.5 mmol/L (3.3-5.1); Sodium 140 mmol/L (135-145)
[2024-04-27 08:44] LABS: Creatinine Urine 131.23 mg/dL; Protein/Creatinine Ratio, Ur 0.17 (<0.2); Total Protein Urine Random 22 mg/dL (<12)
[2024-05-02 11:49] LABS: IgA 145 mg/dL (70-320); IgG 551 mg/dL (600-1540); IgM 25 mg/dL (50-300)
== END 2024-04-27 07:28 | disposition home or self-care (01) ==
LOC: HO.LAB 07:27
PROVIDERS: PCP Physician Assistant; Visit Provider Internal Medicine Nephrology
DX: E11.21 Type 2 diabetes mellitus with diabetic nephropathy (principal); E11.22 Type 2 diabetes mellitus with diabetic chronic kidney disease; I12.9 Hypertensive chronic kidney disease with stage 1 through stage 4 chronic kidney disease, or unspecified chronic kidney disease; N18.2 Chronic kidney disease, stage 2 (mild)
CPT/HCPCS: 36415; 80051; 82565; 82570; 82784; 84156; 84520; 86334

== ENCOUNTER 2024-06-23 10:55 | Outpatient (AMB) | payer MEDICARE, SELFPAY ==
[2024-06-23 11:15] VITALS: BP 140/60; PULSE 60; O2SAT 97; BMI 24.4
--- NOTE | 2024-06-23 11:15 | HO.NEPHOV ---
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 He has diabetes for a long time. He denies any retinopathy but complaints of lower extremity vascular symptoms. He denies any coronary artery disease, congestive heart failure, CVA, CHF, renal artery stenosis, carotid stenosis. He has no epistaxis, photosensitivity, joint swellings, skin rashes, hematuria or pedal edema. He has been tolerating EMMA inhibitor. He is not on any SGLT2 inhibitor. He denies any chest pain, shortness of breath, paroxysmal nocturnal dyspnea, orthopnea or orthostatic symptoms. He denied any family history of renal diseases. He denies any new bone pain or history of renal calculi. [facility] Medical History Diverticulosis Tubular adenoma HTN (hypertension) Diabetes Surgical History Hx of colonoscopy No pertinent past surgical history Family History Mother Hypertension Father Hypertension Stroke Social History Housing: House Alcohol intake: former Patient Tobacco Use Status: Former Tobacco user Tobacco use type: Cigarette e-Cigarette/Vaping Use: Never Used Second Hand Smoke Exposure: No Substance Use Type: Marijuana service: No Current occupational status: retired Current occupation: [employer]. Cognitive needs: No Hearing needs: No Vision needs: Yes Review of Systems Const All systems reviewed & are unremarkable except as noted in HPI and below Physical Exam Vital Signs: Last Vital Signs Pulse 60 06/23/24 11:15 BP 140/60 H 06/23/24 11:15 Pulse Ox 97 06/23/24 11:15 Oxygen Delivery Method Room Air 06/23/24 11:15 BMI result Body Mass Index 24.4 Const General: comfortable and no acute distress Orientation/consciousness: patient oriented x3 HEENT Head: Yes normocephalic Mouth: Normal oral and palatal mucosa present Eyes EOM: EOMs intact bilaterally Neck Neck: Yes supple Resp Auscultation: clear to auscultation bilaterally Cardio Jugular venous distension: no JVD Rate: regular rate GI Palpation (GI): Soft to palpation Auscultation: normal bowel sounds General: Yes no CVA tenderness Back/Spine/Pelvis Back: no CVA tenderness Skin General skin exam: no rashes or lesions noted Neuro General: patient oriented x3 and moves all extremities Extrem General: Yes no pedal edema Results Reviewed Nephrology Results: Hgb 14.7 g/dl (14.0-18.0) 01/21/24 WBC 7.8 X10*3/uL (4.8-10.8) 01/21/24 Plt Count 246 X10*3/uL (160-400) 01/21/24 Sodium 140 mmol/L (135-145) 04/27/24 Potassium 4.5 mmol/L (3.3-5.1) 04/27/24 Chloride 107 mmol/L (96-108) 04/27/24 Carbon Dioxide 26 mmol/L (22-29) 04/27/24 BUN 22 mg/dL (9-16) H 04/27/24 Creatinine 1.07 mg/dL (0.5-1.4) 04/27/24 Calcium 9.4 mg/dL (8.4-10.2) 01/21/24 Urine Creatinine 131.23 mg/dL 04/27/24 Protein/Creatinin Ratio 0.17 (<0.2) 04/27/24 Assessment & Plan Assessment & Plan (1) CKD (chronic kidney disease) stage 2, GFR 60-89 ml/min: Code(s): N18.2 - Chronic kidney disease, stage 2 (mild) Category: Medical Plan Lionel has 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 He is on MEMA inhibitor. His renal functions are stable. He should continue lisinopril 20 mg bid . He has a great candidate for SGLT2 inhibitor after discontinuing glimeperide. I also plan to do Doppler of his renal arteries with time. I ordered blood work in follow-up. I asked him to avoid nonsteroidal anti-inflammatories and maintain good hydration. I answered all his questions. Follow-up appointment given. Orders: Orders Electrolytes 6 Months N18.2 - Chronic kidney disease, stage 2 (mild) Creatinine 6 Months N18.2 - Chronic kidney disease, stage 2 (mild) Blood Urea Nitrogen 6 Months N18.2 - Chronic kidney disease, stage 2 (mild) Medications: Changed From lisinopril 20 mg PO BID I10 - Essential (primary) hypertension To lisinopril 40 mg PO DAILY 90 tabs 3RF I10 - Essential (primary) hypertension Coding Level of Care Code Est Pt Level 4 (36073) Diagnoses CKD (chronic kidney disease) stage 2, GFR 60-89 ml/min N18.2
== END 2024-06-23 11:50 | disposition home or self-care (01) ==
PROVIDERS: PCP Physician Assistant; Visit Provider Internal Medicine Nephrology
DX: N18.2 Chronic kidney disease, stage 2 (mild) (principal)
CPT/HCPCS: 99214

== ENCOUNTER → 2024-06-23 10:55 | Outpatient (BNVA) | payer MEDICARE, SELFPAY | PROVIDERS: PCP Physician Assistant; Visit Provider Internal Medicine Nephrology | DX: E11.22 Type 2 diabetes mellitus with diabetic chronic kidney disease (principal); I12.9 Hypertensive chronic kidney disease with stage 1 through stage 4 chronic kidney disease, or unspecified chronic kidney disease; N18.2 Chronic kidney disease, stage 2 (mild); R80.9 Proteinuria, unspecified | CPT/HCPCS: 99212 ==

== ENCOUNTER 2024-08-02 15:17 | Outpatient (AMB) | payer MEDICARE, SELFPAY ==
--- NOTE | 2024-08-02 15:22 | A.OFFPC_ITS ---
Vital Signs 08/02/24 15:36 08/02/24 15:54 Height 5 ft 7 in Weight 156 lb 8 oz BMI 24.5 BP 168/70 H 160/80 H Blood Pressure Location Lt brachial Position Sitting Pulse 64 Pulse Source Pulse Oximeter Pulse Oximetry (%) 96 Oxygen Delivery Method Room Air Intake Visit Reasons: f/u DMII/ HTN [employer] Required: No Accompanied by: Self / Same As Patient Allergies No Known Allergies Allergy (Verified 08/02/24 15:40) Medication List - Last Reconciled 08/02/24 by Kyle Guthrie PA-C glimepiride 4 mg PO BID insulin glargine 18 units subcut BEDTIME lisinopril 40 mg PO DAILY metformin 1,000 mg PO BID oxymetazoline 0.05% (Afrin (oxymetazoline)) 2 sprays intranasal Q12H PRN pen needle, diabetic As directed simvastatin 10 mg PO DAILY 90 days Tobacco use date assessed: 01/17/24 Fall risk assessment: No Falls in past year Last assessed Fall Risk: 08/02/24 Dental Screening Dental Screen Date: 01/17/24 HPI f/u DMII/ HTN HPI Details Patient is a 68-year-old male here today for a follow-up visit? Patient has a past medical history significant for hypertension, type 2 diabetes. Peripheral artery disease: reports he continues to have lower extremity weakness upon exertion over last few years. He did undergo a arterial ultrasound in 2021 showing-->There are elevated velocities in the right common femoral artery, right profunda femoral artery and proximal right superficial femoral artery with biphasic waveforms. Turbulence is evident in the area. This is suspicious for hemodynamically significant stenosis. He is interested in a handicap placard ..DMII:? Patient is followed by [facility] endocrinology, most recent A1c done in May of 2024 was 7.2., Report getting blood sugars are 180 -200s.? Does report having easy like fatigue ?? Neural claudication. Patient has follow-up with vascular and noted to have abnormal pulses.? .. ..HTN: Patient's blood pressure today i n office elevated, he does not regularly check his blood pressure at home.? Denies any chest discomfort, headaches, vision issues shortness of breath. PLAN: Advised to monitor blood pressures at home and if consistently above 140/90 will consider increase his lisinopril to 30 mg .. HLD:? Continues on statin therapy without any side effect.? Most recent LDL at 107 PFSH Medical History Diverticulosis Tubular adenoma HTN (hypertension) Diabetes Surgical History Hx of colonoscopy No pertinent past surgical history Family History Mother Hypertension Father Hypertension Stroke Social History Housing: House Alcohol intake: former Patient Tobacco Use Status: Former Tobacco user Tobacco use type: Cigarette e-Cigarette/Vaping Use: Never Used Second Hand Smoke Exposure: No Substance Use Type: Marijuana service: No Current occupational status: retired Current occupation: [employer]. Cognitive needs: No Hearing needs: No Vision needs: Yes Questionnaire Thrive Questionnaire Date Thrive assessed: 01/17/24 Are you currently unemployed and looking for a job?: No DEJAH-7 AMB Questionnaire DEJAH-7 Date DEJAH - 7 assessed: 01/17/24 Source: Developed by Drs. Uziel David, Ale Lea, Juan Carlos Evans and colleagues, with an educational jeaneth from [employer]. Review of Systems Const Denies headache(s) Eyes Denies loss of vision ENT Denies vertigo, Denies dizziness, Denies headache(s) and Denies sore throat Card Denies chest pain, Denies leg edema and Denies lightheadedness Resp Denies cough, Denies hemoptysis and Denies wheezing GI Denies abdominal pain, Denies melena, Denies constipation, Denies diarrhea and Denies vomiting Denies dysuria, Denies urinary frequency and Denies urinary urgency Musc Denies arthralgias, Denies joint swelling, Denies numbness and Denies tingling Neuro Denies Abnormal speech present, Denies behavioral changes, Denies vertigo, Denies dizziness, Denies headache(s), Denies loss of vision, Denies memory loss, Denies numbness and Denies tingling Psych Denies anxiety, Denies behavioral changes, Denies depression, Denies memory loss and Denies panic attacks Ramin/Lymph Denies easy bleeding and Denies easy bruising Aller/Immun Denies wheezing Physical exam (Primary Care) Vital Signs: Last Vital Signs Pulse 64 08/02/24 15:36 BP 160/80 H 08/02/24 15:54 Pulse Ox 96 08/02/24 15:36 Oxygen Delivery Method Room Air 08/02/24 15:36 BMI result Body Mass Index 24.5 Tobacco/Smoking Status: Tobacco use Status Tobacco use date assessed 01/17/24 08/02/24 15:22 Patient Tobacco Use Status Former Tobacco user 08/02/24 15:22 Tobacco use type Cigarette 08/02/24 15:22 e-Cigarette/Vaping Use Never Used 08/02/24 15:22 Thrive Assessment: Date of Thrive Assessment Date Thrive assessed 01/17/24 08/02/24 15:22 Const General: healthy appearing, no acute distress, alert and awake Nutritional Appearance: well nourished Orientation/consciousness: oriented to person, oriented to place and oriented to time HENMT Ears: TM's normal bilaterally General nose exam: Normal nasal mucous membranes and turbinates present Eyes Conjunctivae: conjunctivae normal Sclerae: sclerae normal Pupils: Equal, round and reactive pupils present Neck Neck: Yes no lymphadenopathy and Yes no JVD Thyroid: Thyroid normal Carotids: no bruits Resp Effort & Inspection: normal respiratory effort and not tachypneic Auscultation: no crackles, no rales, no rhonchi and no wheezes Cardio Rate: regular rate Rhythm: regular rhythm Heart sounds: no murmurs and normal S1 and S2 GI Palpation (GI): Soft to palpation, nontender, no hepatomegaly and no splenomegaly Auscultation: normal bowel sounds Skin General skin exam: no rashes or lesions noted and dry skin Neuro General: oriented to person, oriented to place and oriented to time Cranial nerves: Yes Equal, round and reactive pupils present Speech: No Abnormal speech present Gait exam (Neuro): Normal gait present Motor exam (neuro): no tremor noted Extrem Right upper extremity: full ROM Left upper extremity: full ROM Right lower extremity: full ROM; no edema Left lower extremity: full ROM; no edema Psych Mental Status: mental status grossly normal Speech and movement: Normal speech and movement present Affect: normal affect Attitude: cooperative Thought process: Normal thought process present Office Procedures Flu Questionnaire Does the patient have a severe egg allergy?: No Does the patient have severe life threatening allergies?: No Does the patient have a fever or illness today?: No Has the patient ever had Guillain-[place] Syndrome?: No Has the patient ever had any past reaction to a flu shot?: No Results AMB Hemoglobin A1c AMB Hemoglobin A1c 7.3 % Last Edit by AY Lauren on 08/02/24 15:55 Immunizations Fluarix Triv [id number] (PF) 45 mcg (15 mcg x 3)/0.5 mL IM syringe Performing Provider: Kyle Guthrie PA-C [facility] [place] [facility] Administered by: YA Lauren on 08/02/24 15:37 Dose Route Admin Location Dispensed Lot Number Expiration Date NDC Lace Stripper 0.5 mL IM Left Deltoid 0.5 mL [id number] 04/16/25 [id number] [employer] VIS Given Date VIS Provided VIS Publication Date 08/02/24 Single Vaccine 21 Eligibility Eligibility Date Funding Source Not [facility] Eligible 08/02/24 Private Results Reviewed Results Reviewed: Laboratory Last Values Hgb A1c (Clinic) 7.3 % (4.0-6.0) H 08/02/24 15:22 Coding Level of Care Code Est Pt Level 4 (23744) Diagnoses Diabetic nephropathy associated with type 2 diabetes mellitus E11.21 Essential hypertension I10 Hypertension type: essential hypertension Type 2 diabetes mellitus with hyperglycemia, with long-term current use of insulin E11.65; Z79.4 Diabetes mellitus complication status: with hyperglycemia Diabetes mellitus residential insulin use: with press tender long goods use Mixed hyperlipidemia E78.2 Hyperlipidemia type: mixed hyperlipidemia Claudication of right lower extremity I73.9 Assessment & Plan Assessment & Plan (1) Diabetic nephropathy associated with type 2 diabetes mellitus: Code(s): E11.21 - Type 2 diabetes mellitus with diabetic nephropathy Category: Medical Plan: As per HPI 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 (2) HTN (hypertension): Code(s): I10 - Essential (primary) hypertension Category: Medical Qualifiers: Hypertension type: essential hypertension Qualified Code(s): I10 - Essential (primary) hypertension Plan: Patient's blood pressure elevated today in office. Will add on hydrochlorothiazide for better blood pressure control. Advised to do more home blood pressure monitoring with goal blood pressure to be below 140/90. (3) Type 2 diabetes mellitus: Code(s): E11.9 - Type 2 diabetes mellitus without complications Category: Medical Qualifiers: Diabetes mellitus complication status: with hyperglycemia Diabetes mellitus press tender long goods insulin use: with press tender long goods use Qualified Code(s): E11.65 - Type 2 diabetes mellitus with hyperglycemia; Z79.4 - control system manager (current) use of insulin Plan: Patient's type 2 diabetes suboptimally controlled with the most recent A1c is 7.2. Continues to follow Endocrinology at [facility]. He does have a continues glucose monitor that has been helpful on making dietary and behavior changes (4) HLD (hyperlipidemia): Code(s): E78.5 - Hyperlipidemia, unspecified Category: Medical Qualifiers: Hyperlipidemia type: mixed hyperlipidemia Qualified Code(s): E78.2 - Mixed hyperlipidemia Plan: Patient's most recent lipid panel showing excellent control of his total cholesterol and LDL. He continues on simvastatin 10 mg with good effect. Goal LDL to remain below 100 (5) Claudication of right lower extremity: Code(s): I73.9 - Peripheral vascular disease, unspecified Category: Medical Plan: As per HPI patient seems to have a peripheral artery disease in his legs. He often needs to rest after physical activity especially inclines. He did get a arterial ultrasound in 2021 showing-- >There are elevated velocities in the right common femoral artery, right profunda femoral artery and proximal right superficial femoral artery with biphasic waveforms. Turbulence is evident in the area. This is suspicious for hemodynamically significant stenosis. Orders: Orders Comprehensive [place]. Panel Fast 08/02/24 E11.65 - Type 2 diabetes mellitus with hyperglycemia, Z79.4 - care home (current) use of insulin Prostate Specific Antigen Scr 08/02/24 E78.2 - Mixed hyperlipidemia, Z12.5 - Encounter for screening for malignant neoplasm of prostate Influenza [id number] Immunization 08/02/24 Z23 - Encounter for immunization Complete Blood Count no Diff 08/02/24 I10 - Essential (primary) hypertension Lipid Panel 08/02/24 E78.2 - Mixed hyperlipidemia AMB Hemoglobin A1c 08/02/24 E11.65 - Type 2 diabetes mellitus with hyperglycemia, Z79.4 - care home (current) use of insulin Medications: New hydrochlorothiazide 12.5 mg PO DAILY 90 days 90 tabs 1RF I10 - Essential (primary) hypertension Patient Instructions: Goal: Blood pressure to be below 140/90 consistently. A1c to be below 7.0, LDL to remain below 100 Barriers: Adherence to physical activity and healthy eating habits
[2024-08-02 15:36] VITALS: BP 168/70; PULSE 64; O2SAT 96; BMI 24.5
[2024-08-02 15:54] VITALS: BP 160/80
== END 2024-08-02 16:03 | disposition home or self-care (01) ==
PROVIDERS: PCP Physician Assistant; Visit Provider Physician Assistant
DX: E11.21 Type 2 diabetes mellitus with diabetic nephropathy (principal); E11.65 Type 2 diabetes mellitus with hyperglycemia; Z79.4 Long term (current) use of insulin; I73.9 Peripheral vascular disease, unspecified; I10 Essential (primary) hypertension; E78.2 Mixed hyperlipidemia

== ENCOUNTER → 2024-08-02 15:17 | Outpatient (BNVA) | payer MEDICARE, SELFPAY | PROVIDERS: PCP Physician Assistant; Visit Provider Physician Assistant | DX: Z23 Encounter for immunization (principal); E11.21 Type 2 diabetes mellitus with diabetic nephropathy; E11.65 Type 2 diabetes mellitus with hyperglycemia; E78.2 Mixed hyperlipidemia; I73.9 Peripheral vascular disease, unspecified; Z79.4 Long term (current) use of insulin | CPT/HCPCS: 83036; 90471; 90656; 99212 ==

== ENCOUNTER 2024-12-18 09:26 | Outpatient (REF) | payer MEDICARE, SELFPAY ==
[2024-12-18 11:12] LABS: Anion Gap 13 (12-20); Blood Urea Nitrogen 24 mg/dL (9-16); Carbon Dioxide 26 mmol/L (22-29); Chloride 103 mmol/L (96-108); Estimated Glomerular Filt Rate 59; Potassium 4.4 mmol/L (3.3-5.1); Sodium 138 mmol/L (135-145)
[2024-12-18 12:04] LABS: Creatinine Urine 71.37 mg/dL; Protein/Creatinine Ratio, Ur 0.36 (<0.2); Total Protein Urine Random 26 mg/dL (<12)
== END 2024-12-18 09:27 | disposition home or self-care (01) ==
LOC: HO.LAB 09:26
PROVIDERS: PCP Physician Assistant; Visit Provider Internal Medicine Nephrology
DX: E11.21 Type 2 diabetes mellitus with diabetic nephropathy (principal); I10 Essential (primary) hypertension; N18.2 Chronic kidney disease, stage 2 (mild)
CPT/HCPCS: 36415; 80051; 82565; 82570; 84156; 84520

== ENCOUNTER 2024-12-22 09:32 | Outpatient (AMB) | payer MEDICARE, SELFPAY ==
--- NOTE | 2024-12-22 09:42 | HO.NEPHOV_ITS ---
Vital Signs 12/22/24 09:44 Height 5 ft 7 in Weight 161 lb 2 oz BMI 25.2 BP 126/60 Blood Pressure Location Rt brachial Position Sitting Pulse 72 Pulse Source Pulse Oximeter Pulse Oximetry (%) 97 Oxygen Delivery Method Room Air Intake Visit Reasons: 6 mon follow up-[facility] Skull Chopper Required: No Accompanied by: Self / Same As Patient Allergies No Known Allergies Allergy (Verified 12/22/24 09:43) HPI Comments Details: Lionel was seen in follow for his mildly proteinuric CKD as well as hypertension. He has diabetes for a long time. He denies any retinopathy but complaints of lower extremity vascular symptoms. He denies any coronary artery disease, congestive heart failure, CVA, CHF, renal artery stenosis, carotid stenosis. He has no epistaxis, photosensitivity, joint swellings, skin rashes, hematuria or pedal edema. He has been tolerating EMMA inhibitor. He is not on any SGLT2 inhibitor. He denies any chest pain, shortness of breath, paroxysmal nocturnal dyspnea, orthopnea or orthostatic symptoms. He denied any family history of renal diseases. He denies any new bone pain or history of renal calculi. [facility] Medical History Diverticulosis Tubular adenoma HTN (hypertension) Diabetes Surgical History Hx of colonoscopy No pertinent past surgical history Family History Mother Hypertension Father Hypertension Stroke Social History Housing: House Alcohol intake: former Patient Tobacco Use Status: Former Tobacco user Tobacco use type: Cigarette e-Cigarette/Vaping Use: Never Used Second Hand Smoke Exposure: No Substance Use Type: Marijuana service: No Current occupational status: retired Current occupation: [employer]. Cognitive needs: No Hearing needs: No Vision needs: Yes Review of Systems Const All systems reviewed & are unremarkable except as noted in HPI and below Physical Exam Vital Signs: Last Vital Signs Pulse 72 12/22/24 09:44 BP 126/60 12/22/24 09:44 Pulse Ox 97 12/22/24 09:44 Oxygen Delivery Method Room Air 12/22/24 09:44 BMI result Body Mass Index 25.2 Const General: comfortable and no acute distress Orientation/consciousness: patient oriented x3 HEENT Head: Yes normocephalic Mouth: Normal oral and palatal mucosa present Eyes EOM: EOMs intact bilaterally Neck Neck: Yes supple Resp Auscultation: clear to auscultation bilaterally Cardio Jugular venous distension: no JVD Rate: regular rate GI Palpation (GI): Soft to palpation Auscultation: normal bowel sounds General: Yes no CVA tenderness Back/Spine/Pelvis Back: no CVA tenderness Skin General skin exam: no rashes or lesions noted Neuro General: patient oriented x3 and moves all extremities Extrem General: Yes no pedal edema Results Reviewed Nephrology Results: Sodium 138 mmol/L (135-145) 12/18/24 Potassium 4.4 mmol/L (3.3-5.1) 12/18/24 Chloride 103 mmol/L (96-108) 12/18/24 Carbon Dioxide 26 mmol/L (22-29) 12/18/24 BUN 24 mg/dL (9-16) H 12/18/24 Creatinine 1.22 mg/dL (0.5-1.4) 12/18/24 Urine Creatinine 71.37 mg/dL 12/18/24 Protein/Creatinin Ratio 0.36 (<0.2) H 12/18/24 Assessment & Plan Assessment & Plan (1) Diabetic nephropathy associated with type 2 diabetes mellitus: Code(s): E11.21 - Type 2 diabetes mellitus with diabetic nephropathy Category: Medical (2) CKD (chronic kidney disease) stage 2, GFR 60-89 ml/min: Code(s): N18.2 - Chronic kidney disease, stage 2 (mild) Category: Medical (3) HTN (hypertension): Code(s): I10 - Essential (primary) hypertension Category: Medical Qualifiers: Hypertension type: essential hypertension Qualified Code(s): I10 - Essential (primary) hypertension Plan Lionel has 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 He is on EMMA inhibitor. His renal functions are stable. He should continue lisinopril 40 mg daily . He has a great candidate for Jardiance after discontinuing glimeperide. I also plan to do Doppler of his renal arteries with time. I ordered blood work in follow-up. I asked him to avoid nonsteroidal anti-inflammatories and maintain good hydration. I answered all his questions. Follow-up appointment given. Orders: Orders Creatinine 6 Months E11.21 - Type 2 diabetes mellitus with diabetic nephropathy, I10 - Essential (primary) hypertension, N18.2 - Chronic kidney disease, stage 2 (mild) Protein Creatinine Ratio, Ur Today E11.21 - Type 2 diabetes mellitus with diabetic nephropathy Blood Urea Nitrogen 6 Months E11.21 - Type 2 diabetes mellitus with diabetic nephropathy, I10 - Essential (primary) hypertension, N18.2 - Chronic kidney disease, stage 2 (mild) Electrolytes 6 Months E11.21 - Type 2 diabetes mellitus with diabetic nephropathy, I10 - Essential (primary) hypertension, N18.2 - Chronic kidney disease, stage 2 (mild) Coding Level of Care Code Est Pt Level 4 (05090) Diagnoses Diabetic nephropathy associated with type 2 diabetes mellitus E11. CKD (chronic kidney disease) stage 2, GFR 60-89 ml/min N18.2 Essential hypertension I10 Hypertension type: essential hypertension
[2024-12-22 09:44] VITALS: BP 126/60; PULSE 72; O2SAT 97; BMI 25.2
== END 2024-12-22 10:17 | disposition home or self-care (01) ==
PROVIDERS: PCP Physician Assistant; Visit Provider Internal Medicine Nephrology
DX: E11.21 Type 2 diabetes mellitus with diabetic nephropathy (principal); I12.9 Hypertensive chronic kidney disease with stage 1 through stage 4 chronic kidney disease, or unspecified chronic kidney disease; N18.2 Chronic kidney disease, stage 2 (mild)
CPT/HCPCS: 99214

== ENCOUNTER → 2024-12-22 09:32 | Outpatient (BNVA) | payer MEDICARE, SELFPAY | PROVIDERS: PCP Physician Assistant; Visit Provider Internal Medicine Nephrology | DX: E11.21 Type 2 diabetes mellitus with diabetic nephropathy (principal); N18.2 Chronic kidney disease, stage 2 (mild); I12.9 Hypertensive chronic kidney disease with stage 1 through stage 4 chronic kidney disease, or unspecified chronic kidney disease | CPT/HCPCS: 99212 ==

== ENCOUNTER 2025-02-01 07:51 | Outpatient (AMB) | payer MEDICARE, SELFPAY ==
[2025-02-01 07:57] VITALS: BP 136/56; PULSE 60; RESP 14; TEMP 36.2; O2SAT 98; BMI 24.7
--- NOTE | 2025-02-01 07:57 | A.OFFPC_ITS ---
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 Accompanied by: Self / Same As Patient Allergies No Known Allergies Allergy (Verified 02/01/25 08:10) Medication List - Last Reconciled 02/01/25 by Kyle Guthrie PA-C glimepiride 4 mg PO BID hydrochlorothiazide 12.5 mg PO DAILY 90 days insulin glargine 12 units subcut BEDTIME lisinopril 40 mg PO DAILY metformin 1,000 mg PO BID oxymetazoline 0.05% (Afrin (oxymetazoline)) 2 sprays intranasal Q12H PRN pen needle, diabetic As directed simvastatin 10 mg PO DAILY 90 days Tobacco use date assessed: 02/01/25 Fall risk assessment: 1 Fall in past year Last assessed Fall Risk: 02/01/25 Dental Screening Dental Screen Date: 02/01/25 Did you have a dental visit in the last 12 months?: Yes Did you have a dental problem in the last 6 months where you did not have access to dental care?: No Was dental information given to patient?: Patient has dentist HPI PE HPI Details Patient is a 69-year-old male here today for a follow-up visit? Patient has a past medical history significant for hypertension, type 2 diabetes. Peripheral artery disease: reports he continues to have lower extremity weakness upon exertion over last few years. He did undergo a arterial ultrasound in 2021 showing-->There are elevated velocities in the right common femoral artery, right profunda femoral artery and proximal right superficial femoral artery with biphasic waveforms. Turbulence is evident in the area. This is suspicious for hemodynamically significant stenosis. He is interested in a handicap placard ..DMII:? Patient is followed by [facility] endocrinology (Dr. Moy), most recent A1c done in noted high at 9.7 (in December 2024), today's A1c in the office at 8.1., Report getting blood sugars are 180 -200s.? Does report having easy like fatigue ?? Neural claudication. PLAN: Will continue his current dose of insulin therapy, metformin a 1000 b.i.d. and glipizide. We did discuss possibly starting Jardiance due to his CKD though patient is apprehensive on starting new medication.? .. ..HTN: Patient's blood pressure today i n office acceptable he does not regularly check his blood pressure at home.? Denies any chest discomfort, headaches, vision issues shortness of breath. .. HLD:? Continues on statin therapy without any side effect.? Most recent LDL at 107. Recent Cologuard was positive thus got colonoscopy in November of 2022 showing diverticular disease , tubular adenoma polyp , repeat 5 years Vaccines: Up-to-date with COVID vaccine, pneumonia and tetanus vaccine, considering shingles vaccine [facility] Medical History Diverticulosis Tubular adenoma HTN (hypertension) Diabetes Surgical History Hx of colonoscopy No pertinent past surgical history Family History Mother Hypertension Father Hypertension Stroke Social History Housing: House Alcohol intake: former Patient Tobacco Use Status: Former Tobacco user Tobacco use type: Cigarette e-Cigarette/Vaping Use: Never Used Second Hand Smoke Exposure: No Substance Use Type: Marijuana service: No Current occupational status: retired Cognitive needs: No Hearing needs: No Vision needs: Yes (Glasses) Questionnaire PHQ-9 Over the last 2 weeks, how often have you been bothered by any of the following problems? 1. Little interest or pleasure in doing things: not at all 2. Feeling down, depressed, or hopeless: not at all 3. Trouble falling or staying asleep, or sleeping too much: not at all 4. Feeling tired or having little energy: not at all 5. Poor appetite or overeating: not at all 6. Feeling bad about yourself - or that you are a failure or have let yourself or your family down: not at all 7. Trouble concentrating on things, such as reading the newspaper or watching television: not at all 8. Moving or speaking so slowly that other people could have noticed. Or the opposite - being so fidgety or restless that you have been moving around a lot more than usual: not at all 9. Thoughts that you would be better off or of hurting yourself in some way: not at all Total score: 0 Depression Screening Interpretation: Negative Depression Screening Done: Yes 03922 - PHQ-9 Billing: Yes Source: Developed by Drs. Uziel David, Ale Lea, Juan Carlos Evans and colleagues, with an educational jeaneth from [employer]. Thrive Questionnaire Date Thrive assessed: 02/01/25 I am a: Patient What is your living situation today?: I have a steady place to live Within the past 12 months, did the food you bought not last and you didn't have the money to get more?: Never true Within the past 12 months, did you worry whether your food would run out before you got money to buy more?: Never true Do you have trouble paying for medicines?: No Do you have trouble getting transportation to medical appointments?: No Do you have trouble paying your heating and electricity bill?: No Do you have trouble taking care of your child, family member or friend?: No Do you have trouble with day-to-day activities such as bathing, preparing meals, shopping, managing finances, etc.?: No Are you currently unemployed and looking for a job?: No Are you interested in more education?: No Please select the resources that you would like help with: None Currently or been in a relationship where the following occur: No concerns reported THRIVE Score: 0 AUDIT C Alcohol Use Questionnaire (AUDIT-C) 1. How often do you have a drink containing alcohol?: Never 3. How often do you have six or more drinks on one occasion?: Never Total Score: 0 Score Reviewed/Action Taken: No DEJAH-7 AMB Questionnaire DEJAH-7 Date DEJAH - 7 assessed: 02/01/25 Feeling nervous, anxious, or on edge: 0 = Not at all Not being able to stop or control worryin = Not at all Worrying too much about different things: 0 = Not at all Trouble relaxin = Not at all Being so restless that it is hard to sit still: 0 = Not at all Becoming easily annoyed or irritable: 0 = Not at all Feeling afraid as if something awful might happen: 0 = Not at all Total DEJAH-7 score (0-4 normal; 5-9 mild; 10-14 moderate; 15-21 severe): 0 Source: Developed by Drs. Uziel David, Ale Lea, Juan Carlos Evans and colleagues, with an educational jeaneth from [employer]. DEJAH-7 Assessment Billing DEJAH-7 Assessment Tool: DEJAH-7 Assessment 19896 Review of Systems Const Denies body aches, Denies chills, Denies excessive sweating, Denies fatigue, Denies fever(s) and Denies headache(s) Eyes Denies blurry vision ENT Denies dysphagia, Denies vertigo, Denies dizziness, Denies headache(s), Denies hearing loss and Denies tinnitus Card Denies chest pain, Denies chest pain with activity, Denies syncope, Denies irregular heart rhythm and Denies dyspnea Resp Denies chest congestion, Denies cough, Denies hemoptysis, Denies dyspnea and Denies wheezing GI Denies abdominal pain, Denies melena, Denies hematochezia, Denies coffee ground emesis, Denies dysphagia, Denies diarrhea, Denies nausea and Denies vomiting Denies difficulty urinating, Denies dysuria, Denies urinary frequency, Denies urinary hesitancy and Denies urinary urgency Musc Denies arthralgias, Denies limited range of motion, Denies muscle cramps and Denies muscle weakness Skin/Breast Denies rash and Denies skin ulcer Neuro Denies Abnormal speech present, Denies confusion, Denies vertigo, Denies dizziness, Denies syncope, Denies headache(s), Denies memory loss and Denies seizure-like activity Psych Denies anxiety, Denies confusion, Denies depression, Denies memory loss, Denies panic attacks and Denies paranoia Endo Denies excessive sweating, Denies fatigue, Denies flushing, Denies polydipsia and Denies polyuria Aller/Immun Denies wheezing Physical exam (Primary Care) Vital Signs: Last Vital Signs Temp 97.1 F 02/01/25 07:57 Pulse 60 02/01/25 07:57 Resp 14 02/01/25 07:57 BP 136/56 L 02/01/25 07:57 Pulse Ox 98 02/01/25 07:57 Oxygen Delivery Method Room Air 02/01/25 07:57 BMI result Body Mass Index 24.7 Tobacco/Smoking Status: Tobacco use Status Tobacco use date assessed 02/01/25 02/01/25 08:00 Patient Tobacco Use Status Former Tobacco user 02/01/25 08:00 Tobacco use type Cigarette 02/01/25 08:00 e-Cigarette/Vaping Use Never Used 02/01/25 08:00 PHQ-9: PHQ-9 Score PHQ-9: Total score 0 02/01/25 08:06 Depression Screening Interpretation: Negative Thrive Assessment: Date of Thrive Assessment Date Thrive assessed 02/01/25 02/01/25 08:00 Currently or been in a relationship where the following occur: No concerns reported Const General: cooperative, comfortable, no acute distress, alert and awake; No confus ion Orientation/consciousness: oriented to person, oriented to place, patient oriented x3 and No confusion HENMT Head: Yes normocephalic Ears: external ears normal and TM's normal bilaterally Face and sinus: No sinus tenderness Mouth: Normal oral and palatal mucosa present and tongue normal Teeth and gingiva: dentition normal and gingiva normal Throat: Yes posterior oropharynx normal, Yes tonsils normal and Yes uvula midline Eyes Conjunctivae: conjunctivae normal Sclerae: sclerae normal Pupils: Equal, round and reactive pupils present EOM: EOMs intact bilaterally Direct Ophthalmoscopy: No no photophobia Neck Neck: Yes no lymphadenopathy, No tender and Yes no JVD Thyroid: Thyroid normal Carotids: no bruits Chest Chest palpation & inspection: no tenderness Resp Effort & Inspection: normal respiratory effort, no audible wheezes, not labored and no stridor Auscultation: no crackles, no rales, no rhonchi and no wheezes Cardio Jugular venous distension: no JVD Rate: regular rate, not bradycardic and not tachycardic Rhythm: regular rhythm Bruits: no carotid bruits Peripheral pulses: Peripheral pulses 2+ throughout GI Inspection: Yes normal to inspection, No abdominal wall ecchymosis and No visible herniation Palpation (GI): Soft to palpation, nontender, no guarding, not rigid and No hepatosplenomegaly present Auscultation: normoactive bowel sounds General: Yes no CVA tenderness Back/Spine/Pelvis Back: no CVA tenderness and No back tenderness Cervical Spine: cervical ROM normal Thoracic/Lumbar Spine: thoracic and lumbar spine normal to inspection, straight leg raise negative bilaterally, No thoraco-lumbar ROM limited and No lumbar s clarke tenderness Skin Lesions: no lesions Rashes: no rashes Wounds: no wounds Neuro General: oriented to person, oriented to place, patient oriented x3, CN's II-XI intact bilaterally and No confusion Cranial nerves: Yes Equal, round and reactive pupils present and Yes Normal accommodation reflex present Cognition (Neuro): normal cognition Speech: No Abnormal speech present Gait exam (Neuro): Normal gait present Motor exam (neuro): 5/5 motor strength present throughout Extrem Right upper extremity: full ROM; no cyanosis Left upper extremity: full ROM; no cyanosis Right lower extremity: no edema Left lower extremity: no edema Psych Appearance: grossly normal Mental Status: mental status grossly normal Affect: normal affect Attitude: cooperative Thought process: Normal thought process present Results AMB Hemoglobin A1c AMB Hemoglobin A1c 8.1 % Last Edit by Irma Larson CMA on 02/01/25 08:10 Coding Level of Care Code Est Pt Prev Care >65y(30694) Diagnoses Annual physical exam Z00.00 Diabetic nephropathy associated with type 2 diabetes mellitus E11.21 Essential hypertension I10 Hypertension type: essential hypertension Type 2 diabetes mellitus with hyperglycemia, with long-term current use of insulin E11.65; Z79.4 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 insulin use: with termite treater use Diabetes mellitus complication status: with hyperglycemia Mixed hyperlipidemia E78.2 Hyperlipidemia type: mixed hyperlipidemia Claudication of right lower extremity I73.9 Additional Codes DEJAH-7 Assessment Billing - DEJAH-7 Assessment Tool: DEJAH-7 Assessment [id number] ([id number]) PHQ-9 - 51165 - PHQ-9 Billing: Yes ([id number]) Assessment & Plan Assessment & Plan (1) Annual physical exam: Code(s): Z00.00 - Encounter for general adult medical examination without abnormal findings Category: Medical Plan: As per HPI (2) Diabetic nephropathy associated with type 2 diabetes mellitus: Code(s): E11.21 - Type 2 diabetes mellitus with diabetic nephropathy Category: Medical Plan: As per HPI patient is followed by a 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 We did discuss possibly starting Jardiance though patient is apprehensive on starting new drugs from at this time. (3) HTN (hypertension): Code(s): I10 - Essential (primary) hypertension Category: Medical Qualifiers: Hypertension type: essential hypertension Qualified Code(s): I10 - Essential (primary) hypertension Plan: Patient's blood pressure acceptable today in office. Advised to do more home blood pressure monitoring with goal blood pressure to be below 140/90. 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 He does see a customer expert in [place] and did get an A1c last month was 9.7. He has made dietary changes in was able to reduce his overall blood sugars.. Continues to follow Endocrinology at [facility]. Goal A1c is to be below 7.0 (5) HLD (hyperlipidemia): Code(s): E78.5 - Hyperlipidemia, unspecified Category: Medical Qualifiers: Hyperlipidemia type: mixed hyperlipidemia Qualified Code(s): E78.2 - Mixed hyperlipidemia Plan: Patient's most recent lipid panel showing excellent control of his total cholesterol and LDL. He continues on simvastatin 10 mg with good effect. Goal LDL to remain below 100 (6) Claudication of right lower extremity: Code(s): I73.9 - Peripheral vascular disease, unspecified Category: Medical Plan: As per HPI patient seems to have a peripheral artery disease in his legs. He often needs to rest after physical activity especially inclines. He did get a arterial ultrasound in 2021 showing-- >There are elevated velocities in the right common femoral artery, right profunda femoral artery and proximal right superficial femoral artery with biphasic waveforms. Turbulence is evident in the area. This is suspicious for hemodynamically significant stenosis. Orders: Orders AMB Hemoglobin A1c Today E11.65 - Type 2 diabetes mellitus with hyperglycemia, Z79.4 - intermediate (current) use of insulin Comprehensive [place]. Panel Fast Today N18.2 - Chronic kidney disease, stage 2 (mild) Complete Blood Count no Diff Today N18.2 - Chronic kidney disease, stage 2 (mild) Lipid Panel Today E78.2 - Mixed hyperlipidemia Prostate Specific Antigen Scr Today E78.2 - Mixed hyperlipidemia, Z12.5 - Encounter for screening for malignant neoplasm of prostate Patient Instructions: Goal: A1c to be below 7.0, LDL to remain below 100 Barriers: Adherence to physical activity and healthy eating habits
== END 2025-02-01 08:34 | disposition home or self-care (01) ==
LOC: HO.HMCH 07:51
PROVIDERS: PCP Physician Assistant; Visit Provider Physician Assistant
DX: Z00.00 Encounter for general adult medical examination without abnormal findings (principal); E11.21 Type 2 diabetes mellitus with diabetic nephropathy; E11.65 Type 2 diabetes mellitus with hyperglycemia; Z79.4 Long term (current) use of insulin; I73.9 Peripheral vascular disease, unspecified; I10 Essential (primary) hypertension; E78.2 Mixed hyperlipidemia

== ENCOUNTER → 2025-02-01 07:51 | Outpatient (BNVA) | payer MEDICARE, SELFPAY | PROVIDERS: PCP Physician Assistant; Visit Provider Physician Assistant | DX: I10 Essential (primary) hypertension (principal); E11.21 Type 2 diabetes mellitus with diabetic nephropathy; E11.65 Type 2 diabetes mellitus with hyperglycemia; E78.2 Mixed hyperlipidemia; I73.9 Peripheral vascular disease, unspecified; Z79.4 Long term (current) use of insulin; Z79.899 Other long term (current) drug therapy | CPT/HCPCS: 83036; 96127; 99397 ==

== ENCOUNTER 2025-02-13 06:00 | Outpatient (REF) | payer MEDICARE, SELFPAY ==
[2025-02-13 07:20] LABS: Hematocrit 39.9 % (42.0-52.0); Hemoglobin 13.6 g/dl (14.0-18.0); Mean Corpuscular HGB Conc 34.1 g/dl (31.0-36.0); Mean Corpuscular Hemoglobin 30.4 pg (27.0-33.0); Mean Corpuscular Volume 89.3 fL (80.0-98.0); Mean Platelet Volume 9.5 fL (9.4-12.4); Platelet Count 253 X10*3/uL (160-400); Red Blood Count 4.47 X10*6/uL (4.60-5.80); Red Cell Distribution Width 13.4 % (11.0-16.0); White Blood Count 8.1 X10*3/uL (4.8-10.8)
[2025-02-13 07:57] LABS: Alanine Aminotransferase 13 U/L (0-40); Albumin Level 4.4 g/dL (3.5-5.0); Alkaline Phosphatase 47 U/L (39-117); Anion Gap 13 (12-20); Aspartate Amino Transferase 13 U/L (5-37); Bilirubin Total 0.4 mg/dL (0.0-1.0); Blood Urea Nitrogen 27 mg/dL (9-16); Calcium 9.4 mg/dL (8.4-10.2); Carbon Dioxide 23 mmol/L (22-29); Chloride 109 mmol/L (96-108); Cholesterol 140 mg/dL (<200); Estimated Glomerular Filt Rate > 60; Glucose Fasting 207 mg/dL (60-99); HDL Cholesterol 44 mg/dL (>40); LDL Cholesterol Calculated 62 mg/dL (<100); Potassium 4.6 mmol/L (3.3-5.1); Sodium 140 mmol/L (135-145); Total Protein 6.5 g/dL (6.5-8.0); Triglycerides 171 mg/dL (<150)
[2025-02-13 08:06] LABS: Prostate Specific Antigen Scr 0.41 ng/mL (<0.05-4.0)
== END 2025-02-13 06:01 | disposition home or self-care (01) ==
LOC: HO.LAB 06:00
PROVIDERS: Internal Medicine Nephrology; PCP Physician Assistant; Visit Provider Physician Assistant
DX: I12.9 Hypertensive chronic kidney disease with stage 1 through stage 4 chronic kidney disease, or unspecified chronic kidney disease (principal); E11.22 Type 2 diabetes mellitus with diabetic chronic kidney disease; N18.2 Chronic kidney disease, stage 2 (mild); E78.2 Mixed hyperlipidemia; Z12.5 Encounter for screening for malignant neoplasm of prostate
CPT/HCPCS: 36415; 80053; 80061; 84153; 85027

== ENCOUNTER 2025-03-30 06:01 | Outpatient (REF) | payer MEDICARE, SELFPAY ==
[2025-03-30 07:15] LABS: Estimated Average Glucose 160 mg/dL; Hemoglobin A1c % 7.2 % (<6.0)
[2025-03-30 07:35] LABS: Alanine Aminotransferase 13 U/L (0-40); Anion Gap 14 (12-20); Aspartate Amino Transferase 14 U/L (5-37); Blood Urea Nitrogen 33 mg/dL (9-16); Carbon Dioxide 23 mmol/L (22-29); Chloride 106 mmol/L (96-108); Estimated Glomerular Filt Rate > 60; Glucose Random 207 mg/dL (60-115); Potassium 4.5 mmol/L (3.3-5.1); Sodium 138 mmol/L (135-145)
== END 2025-03-30 06:02 | disposition home or self-care (01) ==
LOC: HO.LAB 06:01
PROVIDERS: PCP Physician Assistant; Visit Provider Internal Medicine Endocrinology, Diabetes & Metabolism
DX: E11.42 Type 2 diabetes mellitus with diabetic polyneuropathy (principal)
CPT/HCPCS: 36415; 80048; 83036; 84450; 84460

== ENCOUNTER 2025-06-22 06:40 | Outpatient (REF) | payer MEDICARE, SELFPAY ==
--- OUTSIDE RECORDS SUMMARY | 2025-06-22 06:47 | XMS_ITS | Clinical Summary ---
Author Organization [facility] Address [address] [place] [phone] Phone Care Team Providers Care Clay Machine Operator Name Role Phone Kyle Guthrie Primary Care Provider + Amauri Hassan MD Unavailable Allergies No known active allergies Medications simvastatin (ZOCOR) 10 MG tablet Take 1 tablet by mouth daily. 05/10/20 23 Active oxymetazoline (AFRIN) 0.05 % nasal spray 2 sprays by Nasal route 2 (two) times a day. Active hydroCHLOROthiaz aashish 12.5 MG tablet Take 1 tablet by mouth every morning. 08/02/20 24 Active lisinopril (PRINIVIL,ZESTRI L) 40 MG tablet Take 40 mg by mouth daily. 10/08/20 24 Active dulaglutide (TRULICITY) 0.75 mg/0.5 mL subcutaneous injectionIndicat ions:Type 2 diabetes mellitus with peripheral neuropathy Inject 0.5 mL (0.75 mg total) under the skin every 7 days. 6 mL 1 12/28/19 25 Active BASAGLAR KWIKPEN U-100 INSULIN 100 unit/mL (3 mL) InPn injection penIndications:T ype 2 diabetes mellitus with peripheral neuropathy Inject 10-14 Units under the skin nightly at bedtime. 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 Sounds like he is still able to be very active. Will include TFTs & B12 with labs. Type 2 diabetes mellitus with peripheral neuropa thy 2007 Overview (08/11/2023): Using the freestyle young 2 sensor, getting supplies from reliable diabetes Assessment & Plan (04/12/2025 10:28 AM EDT): Control has improved based upon the patient's freestyle young 2 sensor download. No frequent or severe hypoglycemia. Will maintain his insulin regimen. He has started lowering the dosing with becoming more active. Continue to work on eating healthy and being active. To call or message with any issues managing his glucose levels. Up to date with [employer]. Labs ordered today to be done prior to next visit Assessment & Plan (12/27/2024 3:01 PM EDT): Control suboptimal with significant spikes PC meals. Discussed medication options to improve control, including GLP1, prandial insulin. An SGLT2i is not going to be sufficiently potent to achieve adequate control at this point. Discussed risks/benefits of GLP1, do need to monitor for excessive weight loss as he is not overly heavy at baseline. Continue to work on eating healthy & keeping active. To call or send in BG with problems with glycemic control. Up to date w/ ophtho. Assessment & Plan (09/06/2024 9:18 AM EST): Control is reasonable based upon the patient's freestyle young 2 sensor download. No frequent or severe hypoglycemia. Since his activity level has changed with the weather he has increased his lantus back to 14 units because when he was taking 10 units his glucose levels were running high. Will continue with his current regimen, but discussed lowering his lantus if he starts to go low again. Continue to work on eating healthy and being active. To call or message with any issues managing his glucose levels. Up to date with [employer]. Labs ordered today Assessment & Plan (06/05/2024 5:44 PM EDT): Control reasonable based on CGM download. Some mild lows, will lower insulin from 14 units to 10 units. Some spikes, PC meals. Discussed options to improve control, including limiting portions of carbs, combining w/ other macronutrients to help attenuate the spike. Continue to work on eating healthy & keeping active. To call or send in BG with problems with glycemic control. Thinks due for opho. Assessment & Plan (10/27/2023 10:31 AM EST): Control has deteriorated over the past few months. Some lows, likely related to less carb/more activity, no frequent or severe hypoglycemia. Tending to spike up PC meals. Discussed options to improve control, including controlling carbs more, adding prandial insulin with high carb meals, trying a GLP1 agonist (not looking for weight loss), or potentially an SGLT2i. He will work on carb intake for now. Continue to work on eating healthy & keeping active. To call or send in BG with problems with glycemic control. Up to date with [employer]o. Assessment & Plan (08/11/2023 9:19 AM EDT): Control has greatly improved based upon the patient's freestyle young 2 sensor download. No frequent or severe hypoglycemia. He was having issues with lows over night, he would correct with juice and then was fine. He has since lowered his glargine from 18 units to 12 units and no longer having issues with the lows. Will continue with his current regimen. Continue to work on eating healthy and being active. To call or message with any issues managing his glucose levels. Up to date with ophtho. Labs ordered today Assessment & Plan (05/12/2023 9:02 AM EDT): Control has been suboptimal. No frequent or severe hypoglycemia. No pattern to limited BG readings to guide rx adjustment. Advised her consider using young as now meets medicare criteria. He is interested in doing so. Will send paperwork into DME. Continue to work on eating healthy & keeping active. To call or send in BG with problems with glycemic control. Will do labs today. To call if hasn't heard from us within 1-2 weeks.Due for ophtho. Foot & nail care good. Essential hypertension Assessment & Plan (12/27/2024 2:57 PM EDT): BP above target today, following w/ renal. Assessment & Plan (06/05/2024 5:45 PM EDT): Well controlled today. Assessment & Plan (10/27/2023 10:32 AM EST): Well controlled today. Assessment & Plan (05/12/2023 9:00 AM EDT): Reports it has been generally well-controlled. High today. Has follow up coming up with PCP & can recheck then. Hyperlipidemia Type 2 diabetes mellitus with microalbuminuria Assessment & Plan (12/27/2024 2:58 PM EDT): On angeline inhibitor. Following w/ renal who advised considering SGLT2i, see above. Assessment & Plan (06/05/2024 5:45 PM EDT): BP well controlled, on angeline-inhibitor. Assessment & Plan (10/27/2023 10:32 AM EST): Umalb/creat stable, mildly elevated. BP well controlled, on angeline-inhibitor. Encounters Date Type Department Care Team Description 06/05/2025 Refill [facility] [address] [place] [address] Lori Bishop MD Medication Refill 04/16/2025 Refill [facility] [address] [place] [address] Nazanin Darnell PA-C Medication Refill 04/10/2025 8:00 AM EDT Office Visit [facility] [address] [place] [address] Nazanin Darnell PA-C Type 2 diabetes mellitus with peripheral neuropathy (Primary Dx) 04/03/2025 Orders Only [facility] [address] [place] [address] Darlene Yang MA Type 2 diabetes mellitus with peripheral neuropathy from Last 3 Months Family History Medical History Relation Comments Diabetes Sibling Relation Status Comments Sibling Social History Tobacco Use Types Packs/Day Years Used Date Smoking Tobacco: Former Cigarettes Q uit: 1998 Smokeless Tobacco: Never Tobacco Cessation:Counseling Given: Not Answered Alcohol Use Standard Drinks/Week Comments Never 0 (1 standard drink = 0.6 oz pur e alcohol) Education Answer Date Recorded Are you interested in more education? Not on jose f e 02/12/2023 Are you concerned about learning? Not on file 02/12/2023 No 02/12/2023 No 02/12/2023 Digital Access Answer Date Recorded No 03/16/2023 No 03/16/2023 Reliable internet access at home? Not on file 03/16/2023 Device with a working camera? Not on file Sex and Gender Information Value Date Recorded Sex Assigned at Not on file Legal Sex Male 2:47 PM EDT Gender Identity Not on file Sexual Orientation Not on file Last Filed Vital Signs Vital Sign Reading Time Taken Comments Blood Pressure 124/62 04/10/2025 7:39 AM EDT Pulse 73 04/10/2025 7:39 AM EDT Temperature - - Respiratory Rate - - Oxygen Saturation 97% 04/10/2025 7:39 AM EDT Inhaled Oxygen Concentration - - Weight 68.9 kg (152 lb) 04/10/2025 7:39 AM EDT Height 170.2 cm (5' 7.01 ) 04/10/2025 7:39 AM ED T Body Mass Index 23.8 04/10/2025 7:39 AM EDT Plan of Treatment Upcoming Encounters Date Type Department Care Team (Late st Contact Info) Description 09/06/2025 11:40 AM EST Office Visit [facility] [address] [place] [address] Lori Bishop MD [address] [place] [address] 12/11/2025 8:00 AM EST Office Visit [facility] [address] [place] [address] [place] [address] Nazanin Darnell PA-C [address] [place] [address] Health Maintenance Due Date Last Done Comments Adult Td,Tdap Booster 1955 DEPRESSION SCREENING 1965 HEPATITIS C SCREENING 1971 LIPID PANEL 1971 PNEUMOCOCCAL VACCINES (50+ years) (1 of 2 - PCV) 1972 COLOGUARD 1998 COLONOSCOPY 1998 COLORECTAL CANCER SCREENING 1998 FIT TEST 1998 FOBT 1998 SIGMOIDOSCOPY 1998 VIRTUAL COLONOSCOPY 1998 ZOSTER VACCINES (1 of 2) 2003 RSV VACCINE (1 - Risk 60-74 years 1-dose series) 2013 ABDOMINAL AORTIC ANEURYSM (AAA) SCREENING 2018 DIABETIC EYE EXAM 05/12/2023 COVID-19 VACCINE ( - season) 2024 HEMOGLOBIN A1C 03/29/2025 12/27/2024, 08/18, 06/01/2024, Additional history exists BLOOD PRESSURE 10/10/2025 04/10/2025 CREATININE LEVEL 03/30/2026 03/30/2025, , 06/01/2024, Additional history exists POTASSIUM LEVEL 03/30/2026 03/30/2025, 08/18, 06/01/2024, Additional history exists SMOKING Hx and SMOKELESS TOBACCO SCREENING 04/10/2026 04/10/2025 HEPATITIS A VACCINES Aged Out No long er eligible based on patient's age to complete this topic HIB VACCINES Aged Out No longer eligi ble based on patient's age to complete this topic MENINGOCOCCAL VACCINES (ACWY) Aged Out No longer eligible based on patient's age to complete this topic MENINGOCOCCAL VACCINES (B) Aged Out N o longer eligible based on patient's age to complete this topic Medical Devices Not on file Procedures Procedure Name Priority Date/Time Associated Diagnosis Comments BASIC METABOLIC PANEL Routine 03/30/2025 8:08 AM EDT Type 2 diabetes mellitus with peripheral neuropathy ALANINE AMINOTRANSFERASE (ALT) Routine 03/30/2025 8:08 AM EDT Type 2 diabetes mellitus with peripheral neuropathy ASPARTATE AMINOTRANSFERASE (AST) Routine 03/30/2025 8:07 AM EDT Type 2 diabetes mellitus with peripheral neuropathy HEMOGLOBIN A1C Routine 03/30/2025 8:07 AM EDT Type 2 diabetes mellitus with peripheral neuropathy HEMOGLOBIN A1C Routine 12/27/2024 12:40 PM EDT Type 2 diabetes mellitus with peripheral neuropathy from Last 3 Months or Most Recently Relevant to Health Maintenance Results * Basic metabolic panel (03/30/2025 8:08 AM EDT) Blood Lori Bishop MD LAB BLOOD ORDERABLES F inal Result [address] [address] * Alanine aminotransferase (ALT) (03/30/2025 8:08 AM EDT) Blood Lori Bishop MD LAB BLOOD ORDERABLES F inal Result Performing Organization Address [facility]/ZIP Co de Phone Number [address] [phone] * Aspartate aminotransferase (AST) (03/30/2025 8:07 AM EDT) Blood Lori Bishop MD LAB BLOOD ORDERABLES F inal Result Performing Organization Address [facility] Co de Phone Number [address] [phone] * Hemoglobin A1c (03/30/2025 8:07 AM EDT) Only the most recent of2 resultswithin the time period is included. Blood Lori Bishop MD LAB BLOOD ORDERABLES F inal Result Performing Organization Address [facility] Co de Phone Number [address] [address] from Last 3 Months or Most Recently Relevant to Health Maintenance Insurance [place] [place] MED[place] PPO BLUE REPLACEMENT MEDICARE PART A & B [facility] MEDICARE PPO BLUE REPLACEMENT MEDICARE PART A & B [facility] MEDICARE PPO BLUE REPLACEMENT MEDICARE PART A & B [facility] MEDICARE PPO BLUE REPLACEMENT MEDICARE PART A & B [facility] MEDICARE PPO BLUE REPLACEMENT MEDICARE PART A & B [facility] MEDICARE PPO BLUE REPLACEMENT MEDICARE PART A & B Care Teams Clay Machine Operator Relationship Specialty Start Date End Date Kyle Guthrie PA [address] [place] [phone] PCP - General Physician Hop Farm Worker 01/01/23 Amauri Hassan MD [address] [place] [address] Nephrology 12/28/24 Additional Source Comments The information contained in this document represents components of the legal health record. It is not the complete legal health record.[facility]
[2025-06-22 08:12] LABS: Anion Gap 16 (12-20); Blood Urea Nitrogen 25 mg/dL (9-16); Carbon Dioxide 23 mmol/L (22-29); Chloride 106 mmol/L (96-108); Estimated Glomerular Filt Rate > 60; Potassium 4.6 mmol/L (3.3-5.1); Sodium 140 mmol/L (135-145)
[2025-06-22 08:36] LABS: Protein/Creatinine Ratio, Ur 0.12 (<0.2); Total Protein Urine Random 19 mg/dL (<12)
== END 2025-06-22 06:41 | disposition home or self-care (01) ==
LOC: HO.LAB 06:40
PROVIDERS: PCP Physician Assistant; Visit Provider Internal Medicine Nephrology
DX: I12.9 Hypertensive chronic kidney disease with stage 1 through stage 4 chronic kidney disease, or unspecified chronic kidney disease (principal); N18.2 Chronic kidney disease, stage 2 (mild); E11.21 Type 2 diabetes mellitus with diabetic nephropathy
CPT/HCPCS: 36415; 80051; 82565; 82570; 84156; 84520

== ENCOUNTER 2025-06-27 10:03 | Outpatient (AMB) | payer MEDICARE, SELFPAY ==
--- NOTE | 2025-06-27 10:06 | HO.NEPHOV_ITS ---
Vital Signs 06/27/25 10:07 Height 5 ft 7 in Weight 152 lb 4 oz BMI 23.8 BP 150/62 H Blood Pressure Location Lt brachial Position Sitting Pulse 69 Pulse Source Pulse Oximeter Pulse Oximetry (%) 97 Oxygen Delivery Method Room Air Intake Visit Reasons: 6 MO FU-LV Fine Chemicals Operator Required: No Accompanied by: Self / Same As Patient Allergies No Known Allergies Allergy (Verified 06/27/25 10:07) HPI Comments Details: Lionel was seen in follow for his mildly proteinuric CKD as well as hypertension. He has diabetes for a long time. He denies any retinopathy but complaints of lower extremity vascular symptoms. He denies any coronary artery disease, congestive heart failure, CVA, CHF, renal artery stenosis, carotid stenosis. He has no epistaxis, photosensitivity, joint swellings, skin rashes, hematuria or pedal edema. He has been tolerating EMMA inhibitor. He is not on any SGLT2 inhibitor. He denies any chest pain, shortness of breath, paroxysmal nocturnal dyspnea, orthopnea or orthostatic symptoms. He denied any family history of renal diseases. He denies any new bone pain or history of renal calculi. [facility] Medical History Diverticulosis Tubular adenoma HTN (hypertension) Diabetes Surgical History Hx of colonoscopy No pertinent past surgical history Family History Mother Hypertension Father Hypertension Stroke Social History Housing: House Alcohol intake: former Patient Tobacco Use Status: Former Tobacco user Tobacco use type: Cigarette e-Cigarette/Vaping Use: Never Used Second Hand Smoke Exposure: No Substance Use Type: Marijuana service: No Current occupational status: retired Cognitive needs: No Hearing needs: No Vision needs: Yes (Glasses) Review of Systems Const All systems reviewed & are unremarkable except as noted in HPI and below Physical Exam Vital Signs: Last Vital Signs Pulse 69 06/27/25 10:07 BP 150/62 H 06/27/25 10:07 Pulse Ox 97 06/27/25 10:07 Oxygen Delivery Method Room Air 06/27/25 10:07 BMI result Body Mass Index 23.8 Const General: comfortable and no acute distress Orientation/consciousness: patient oriented x3 HEENT Head: Yes normocephalic Mouth: Normal oral and palatal mucosa present Eyes EOM: EOMs intact bilaterally Neck Neck: Yes supple Resp Auscultation: clear to auscultation bilaterally Cardio Jugular venous distension: no JVD Rate: regular rate GI Palpation (GI): Soft to palpation Auscultation: normal bowel sounds General: Yes no CVA tenderness Back/Spine/Pelvis Back: no CVA tenderness Skin General skin exam: no rashes or lesions noted Neuro General: patient oriented x3 and moves all extremities Extrem General: Yes no pedal edema Results Reviewed Nephrology Results: Hgb, (14.0-18.0) 13.6 g/dl L 02/13/25 WBC, (4.8-10.8) 8.1 X10*3/uL 02/13/25 Plt Count, (160-400) 253 X10*3/uL 02/13/25 Sodium, (135-145) 140 mmol/L 06/22/25 Potassium, (3.3-5.1) 4.6 mmol/L 06/22/25 Chloride, (96-108) 106 mmol/L 06/22/25 Carbon Dioxide, (22-29) 23 mmol/L 06/22/25 BUN, (9-16) 25 mg/dL H 06/22/25 Creatinine, (0.5-1.4) 1.11 mg/dL 06/22/25 Calcium, (8.4-10.2) 10.0 mg/dL Δ 03/30/25 Urine Creatinine 154.70 mg/dL 06/22/25 Protein/Creatinin Ratio, (<0.2) 0.12 06/22/25 Assessment & Plan Assessment & Plan (1) HTN (hypertension): Code(s): I10 - Essential (primary) hypertension Category: Medical Qualifiers: Hypertension type: essential hypertension Qualified Code(s): I10 - Essential (primary) hypertension (2) Diabetic nephropathy associated with type 2 diabetes mellitus: Code(s): E11.21 - Type 2 diabetes mellitus with diabetic nephropathy Category: Medical (3) CKD (chronic kidney disease) stage 2, GFR 60-89 ml/min: Code(s): N18.2 - Chronic kidney disease, stage 2 (mild) Category: Medical Plan Lionel has 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 He is on EMMA inhibitor. His renal functions are stable. He should continue lisinopril 40 mg daily . I started him on Jardiance 10 mg daily which I will increase to 25 mg with time. He should discontinue glimeperide if he is able to afford Jardiance . Once he starts taking it and increase the dose of it, I shall plan to cut back on Metformin at that time. I also plan to do Doppler of his renal arteries with time. I ordered blood work in follow-up. I asked him to avoid nonsteroidal anti-inflammatories and maintain good hydration. I answered all his questions. Follow-up appointment given. Orders: Orders Blood Urea Nitrogen 3 Months E11.21 - Type 2 diabetes mellitus with diabetic nephropathy, I10 - Essential (primary) hypertension, N18.2 - Chronic kidney disease, stage 2 (mild) Hemoglobin A1c 3 Months E11.21 - Type 2 diabetes mellitus with diabetic nephropathy, I10 - Essential (primary) hypertension, N18.2 - Chronic kidney disease, stage 2 (mild) Electrolytes 3 Months E11.21 - Type 2 diabetes mellitus with diabetic nephropathy, I10 - Essential (primary) hypertension, N18.2 - Chronic kidney disease, stage 2 (mild) Creatinine 3 Months E11.21 - Type 2 diabetes mellitus with diabetic nephropathy, I10 - Essential (primary) hypertension, N18.2 - Chronic kidney disease, stage 2 (mild) Medications: New empagliflozin (Jardiance) 10 mg PO DAILY 30 tabs 6RF 30 days Coding Level of Care Code Est Pt Level 4 (50392) Diagnoses Essential hypertension I10 Hypertension type: essential hypertension Diabetic nephropathy associated with type 2 diabetes mellitus E11.21 CKD (chronic kidney disease) stage 2, GFR 60-89 ml/min N18.2
[2025-06-27 10:07] VITALS: BP 150/62; PULSE 69; O2SAT 97; BMI 23.8
--- OUTSIDE RECORDS SUMMARY | 2025-06-27 12:11 | XMS_ITS | Clinical Summary ---
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 Up to date with [employer]. Labs ordered today to be done prior [...] Team Description 06/05/2025 Refill [facility] [address] [place] [address] Lori Bishop MD Medication Refill 04/16/2025 Refill [facility] [address] [place] [address] Nazanin Darnell PA-C Medication Refill 04/10/2025 8:00 AM EDT Office Visit [facility] [address] [place] [address] Nazanin Darnell PA-C Type 2 diabetes mellitus with peripheral neuropathy (Primary Dx) 04/03/2025 Orders Only [facility] [address] [place] [address] Darlene Yang MA Type 2 diabetes mellitus [...] AM EST Office Visit [facility] [address] [place] [address] Lori Bishop MD [address] [place] [address] 12/11/2025 8:00 AM EST Office Visit [facility] [address] [place] [address] [place] [address] Nazanin Darnell PA-C [address] [place] [address] Health Maintenance Due Date Last Done Comments [...] (AAA) SCREENING 2018 DIABETIC EYE EXAM 05/12/2023 HEMOGLOBIN A1C 03/29/2025 12/27/2024, 08/18, 06/01/2024, Additional history exists INFLUENZA VACCINE (#1) 2025 COVID-19 VACCINE ( - season) 2025 BLOOD PRESSURE 10/10/2025 04/10/2025 CREATININE LEVEL 03/30/2026 [...] metabolic panel (03/30/2025 8:08 AM EDT) Blood us Lori Bishop MD LAB BLOOD ORDERABLES F inal Result [facility] [address] [place] [address] * Alanine aminotransferase (ALT) (03/30/2025 8:08 AM EDT) Blood Lori Bishop MD LAB BLOOD ORDERABLES F inal Result Performing Organization Address [facility]/ZIP Co de Phone Number [address] [phone] * Aspartate aminotransferase (AST) (03/30/2025 8:07 AM EDT) Blood Lori Bishop MD LAB BLOOD ORDERABLES F inal Result Performing Organization Address [facility] Co de Phone Number [address] [address] * Hemoglobin A1c (03/30/2025 8:07 AM EDT) Only the most recent of2 resultswithin the time period is included. Blood Lori Bishop MD LAB BLOOD ORDERABLES F inal Result Performing Organization Address [facility] Co de Phone Number [address] [address] from Last 3 Months or Most Recently Relevant to Health Maintenance Insurance [place] BLUE REPLACEMENT MEDICARE PART A & B Member Subscriber Plan / Payer (Ef fective 2019-Present) Name:Lionel Fields Member ID:[id number] Relation to Subscriber:Self Name:Lionel Fields Subscriber ID:[id number] Payer ID:[id number] Group ID:Not on file Type:Medicare Address: [facility] [employer] [facility] [address] [place] [address] [facility] MEDICARE PPO BLUE REPLACEMENT MEDICARE PART A & B Member Subscriber Plan / Payer (Ef fective 2019-Present) Name:DiamondCiroLionel Member ID:[id number] Relation to Subscriber:Self Name:Lionel Fields Subscriber ID:[id number] Payer ID:[id number] Group ID:Not on file Type:Medicare Address: [facility] [employer] [facility] [address] [place] [address] [facility] MEDICARE PPO BLUE REPLACEMENT MEDICARE PART A & B [facility] MEDICARE PPO BLUE REPLACEMENT MEDICARE PART A & B [facility] MEDICARE PPO BLUE REPLACEMENT MEDICARE PART A & B [employer] [place] P[place] BLUE REPLACEMENT MEDICARE PART A & B Care Teams Orchid Hand Relationship Specialty Start Date End Date Kyle Guthrie PA [address] [place] [phone] PCP - General Physician Engineering Supplies Sales 01/01/23 Amauri Hassan MD [address] [place] [phone] Nephrology 12/28/24 Additional Source Comments The information contained in this document represents components of the legal health record. It is not the complete legal health record.[facility]
== END 2025-06-27 10:24 | disposition home or self-care (01) ==
LOC: HO.HKA 10:04
PROVIDERS: PCP Physician Assistant; Visit Provider Internal Medicine Nephrology
DX: I12.9 Hypertensive chronic kidney disease with stage 1 through stage 4 chronic kidney disease, or unspecified chronic kidney disease (principal); E11.21 Type 2 diabetes mellitus with diabetic nephropathy; N18.2 Chronic kidney disease, stage 2 (mild)
CPT/HCPCS: 99214

== ENCOUNTER → 2025-06-27 10:03 | Outpatient (BNVA) | payer MEDICARE, SELFPAY | PROVIDERS: PCP Physician Assistant; Visit Provider Internal Medicine Nephrology | DX: E11.22 Type 2 diabetes mellitus with diabetic chronic kidney disease (principal); I12.9 Hypertensive chronic kidney disease with stage 1 through stage 4 chronic kidney disease, or unspecified chronic kidney disease; N18.2 Chronic kidney disease, stage 2 (mild); E11.21 Type 2 diabetes mellitus with diabetic nephropathy | CPT/HCPCS: 99212 ==

== ENCOUNTER 2025-08-07 08:12 | Outpatient (AMB) | payer MEDICARE, SELFPAY ==
--- OUTSIDE RECORDS SUMMARY | 2025-08-07 08:20 | XMS_ITS | Clinical Summary ---
Author Organization [facility] Address [address] [place] [phone] Phone Care Team Providers Care Magazine Repairer Name Role Phone Kyle Guthrie Primary Care Provider + Amauri Hassan MD Unavailable Allergies No known active allergies Medications simvastatin (ZOCOR) 10 MG tablet Take 1 tablet by mouth daily. 3 Active oxymetazoline (AFRIN) 0.05 % nasal spray 2 sprays by Nasal route 2 (two) times a day. Active hydroCHLOROthiazi de 12.5 MG tablet Take 1 tablet by mouth every morning. 4 Active lisinopril (PRINIVIL,ZESTRIL ) 40 MG tablet Take 40 mg by mouth daily. 4 Active dulaglutide (TRULICITY) 0.75 mg/0.5 mL subcutaneous injectionIndicati ons:Type 2 diabetes mellitus with peripheral neuropathy Inject 0.5 mL (0.75 mg total) under the skin every 7 days. 6 mL 1 5 Active BASAGLAR KWIKPEN U-100 INSULIN 100 unit/mL (3 mL) InPn injection penIndications:Ty pe 2 diabetes mellitus with peripheral neuropathy Inject 10-14 Units under the skin nightly at bedtime. 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 Labs ordered today to be done prior [...] his glucose levels. Up to date with [facility]. Labs ordered today Assessment & Plan (06/05/2024 [...] problems with glycemic control. Thinks due for [facility]. Assessment & Plan (10/27/2023 10:31 AM EST): [...] with glycemic control. Up to date with [email or web address]. Assessment & Plan (08/11/2023 9:19 AM EDT): [...] Care Team Description 06/05/2025 Refill [facility] [place] [address] Lori Bishop MD Medication Refill from Last 3 Months Family History Medical [...] AM EST Office Visit [facility] [address] [place] [address] Lori Bishop MD [address] [place] [phone] 12/11/2025 8:00 AM EST Office Visit [facility] [address] [place] [address] [place] [address] [email or web address] Health Maintenance Due Date Last Done Comments Adult Td,Tdap Booster 1953 DEPRESSION SCREENING 1965 HEPATITIS C SCREENING 1971 LIPID PANEL 1971 PNEUMOCOCCAL VACCINES (50+ years) (1 of 2 - PCV) 1972 COLOGUARD 1998 COLONOSCOPY 1998 COLORECTAL CANCER SCREENING 1998 FIT TEST 1998 FOBT 1998 SIGMOIDOSCOPY 1998 VIRTUAL COLONOSCOPY 1998 RSV VACCINE (1 - Risk 50-74 years 1-dose series) 2003 ZOSTER VACCINES (1 of 2) 2003 ABDOMINAL AORTIC ANEURYSM (AAA) SCREENING 2018 DIABETIC EYE EXAM 05/12/2023 HEMOGLOBIN A1C 03/29/2025 12/27/2024, 08/18, 06/01/2024, Additional history exists INFLUENZA VACCINE (#1) 2025 COVID-19 VACCINE ( season) 2025 BLOOD PRESSURE 10/10/2025 04/10/2025 CREATININE [...] MD LAB BLOOD ORDERABLES F inal Result [address] [address] * (ABNORMAL) Hemoglobin A1c (12/27/2024 12:40 PM EDT) HEMOGLOBIN A1C 9.7(H) 4.3 - 5.8 % [facility] Blood 12/27/2024 12:4 0 PM EDT 12/27/2024 12:42 PM EDT Lori Bishop MD LAB BLOOD ORDERABLES F inal Result Performing Organization Address [facility] Co de Phone Number [address] [address] from Last 3 Months or Most Recently Relevant to Health Maintenance [place] BLUE [place]AC[place] MEDICARE PART A & B [facility] MEDICARE PPO BLUE REPLACEMENT MEDICARE PART A & B [facility] MEDICARE PPO BLUE REPLACEMENT MEDICARE PART A & B [facility] MEDICARE PPO BLUE REPLACEMENT MEDICARE PART A & [place] [employer] [place] RE[place] MEDICARE PART A & B [facility] MEDICARE PPO BLUE REPLACEMENT MEDICARE PART [place] & [place] [id number] Care Teams Magazine Repairer Relationship Specialty Start Date End Date Kyle Guthrie PA [address] [place] [phone] PCP - General Physician Inspector Machined Parts 01/01/23 Amauri Hassan MD [address] [place] [phone] Nephrology 12/28/24 Additional Source Comments The information contained in this document represents components of the legal health record. It is not the complete legal health record.[facility]
--- NOTE | 2025-08-07 08:26 | MHC.PC.OV ---
Vital Signs 08/07/25 08:27 Height 5 ft 7 in Weight 142 lb 2 oz BMI 22.3 BP 140/70 H Blood Pressure Location Lt brachial Position Sitting Pulse 67 Pulse Source Pulse Oximeter Temp 97.1 F Temp Source Temporal Artery Scan Pulse Oximetry (%) 99 Oxygen Delivery Method Room Air Intake Visit Reasons: F/U DMII Intake Note: Patient is here to follow up on DM. Chief Cardiopulmonary Technologist Required: No Inventory Checker: Not Required per policy Accompanied by: Self / Same As Patient Allergies hydrochlorothiazide Adverse Reaction (Intermediate, Verified 08/07/25 08:46) dizziness Medication List - Last Reconciled 08/07/25 by Kyle Guthrie PA-C empagliflozin (Jardiance) 10 mg PO DAILY 30 days glimepiride 4 mg PO BID insulin glargine 12 units subcut BEDTIME lisinopril 40 mg PO DAILY metformin 1,000 mg PO BID oxymetazoline 0.05% (Afrin (oxymetazoline)) 2 sprays intranasal Q12H PRN pen needle, diabetic As directed simvastatin 10 mg PO DAILY 90 days Tobacco use date assessed: 08/07/25 Fall risk assessment: No Falls in past year Last assessed Fall Risk: 08/07/25 Dental Screening Dental Screen Date: 02/01/25 HPI F/U DMII HPI Details Patient is a 69-year-old male here today for a follow-up visit? Patient has a past medical history significant for hypertension, type 2 diabetes. Peripheral artery disease: reports he continues to have lower extremity weakness upon exertion over last few years. He did undergo a arterial ultrasound in 2021 showing-->There are elevated velocities in the right common femoral artery, right profunda femoral artery and proximal right superficial femoral artery with biphasic waveforms. Turbulence is evident in the area. This is suspicious for hemodynamically significant stenosis. He is interested in a handicap placard ..DMII:? Have noted weight loss since last office visit. He does admit to polyuria recently.. Patient is followed by an professor of management ( Dr. Moy), most recent A1c done in noted high at 9.7 (in December 2024), today's A1c, Report getting blood sugars are 180 -200s.? Does report having easy like fatigue ?? Neural claudication. PLAN: Will continue his current dose of insulin therapy, metformin a 1000 b.i.d. and glipizide. He has started Jardiance due to his CKD . .. ..HTN: Patient's blood pressure today in office slightly elevated.? Denies any chest discomfort, headaches, vision issues shortness of breath. PLAN: Will start amlodipine 2.5 for better blood pressure control .. HLD:? Continues on statin therapy without any side effect.? Most recent LDL at 107. PFSH Medical History Diverticulosis Tubular adenoma HTN (hypertension) Diabetes Surgical History Hx of colonoscopy No pertinent past surgical history Family History Mother Hypertension Father Hypertension Stroke Social History Housing: House Alcohol intake: former Patient Tobacco Use Status: Former Tobacco user Tobacco use type: Cigarette e-Cigarette/Vaping Use: Never Used Second Hand Smoke Exposure: Yes Substance Use Type: Marijuana service: No Current occupational status: retired Cognitive needs: No Hearing needs: No Vision needs: Yes (Glasses) Questionnaire Thrive Questionnaire Date Thrive assessed: 01/26/25 I am a: Patient What is your living situation today?: I have a steady place to live Within the past 12 months, did the food you bought not last and you didn't have the money to get more?: Never true Within the past 12 months, did you worry whether your food would run out before you got money to buy more?: Never true Do you have trouble paying for medicines?: No Do you have trouble getting transportation to medical appointments?: No Do you have trouble paying your heating and electricity bill?: No Do you have trouble taking care of your child, family member or friend?: No Do you have trouble with day-to-day activities such as bathing, preparing meals, shopping, managing finances, etc.?: No Are you currently unemployed and looking for a job?: No Are you interested in more education?: No Please select the resources that you would like help with: None Currently or been in a relationship where the following occur: No concerns reported THRIVE Score: 0 AUDIT C Alcohol Use Questionnaire (AUDIT-C) 3. How often do you have six or more drinks on one occasion?: Never Total Score: 0 DEJAH-7 AMB Questionnaire DEJAH-7 Date DEJAH - 7 assessed: 02/01/25 Source: Developed by Drs. Uziel David, Ale Lea, Juan Carlos Evans and colleagues, with an educational jeaneth from [employer]. Review of Systems Const Denies headache(s) Eyes Denies loss of vision ENT Denies vertigo, Denies dizziness, Denies headache(s) and Denies sore throat Card Denies chest pain, Denies leg edema and Denies lightheadedness Resp Denies cough, Denies hemoptysis and Denies wheezing GI Denies abdominal pain, Denies melena, Denies constipation, Denies diarrhea and Denies vomiting Denies dysuria, Denies urinary frequency and Denies urinary urgency Musc Denies arthralgias, Denies joint swelling, Denies numbness and Denies tingling Neuro Denies Abnormal speech present, Denies behavioral changes, Denies vertigo, Denies dizziness, Denies headache(s), Denies loss of vision, Denies memory loss, Denies numbness and Denies tingling Psych Denies anxiety, Denies behavioral changes, Denies depression, Denies memory loss and Denies panic attacks Ramin/Lymph Denies easy bleeding and Denies easy bruising Aller/Immun Denies wheezing Physical exam (Primary Care) Vital Signs: Last Vital Signs Temp 97.1 F 08/07/25 08:27 Pulse 67 08/07/25 08:27 BP 140/70 H 08/07/25 08:27 Pulse Ox 99 08/07/25 08:27 Oxygen Delivery Method Room Air 08/07/25 08:27 BMI result Body Mass Index 22.3 Tobacco/Smoking Status: Tobacco use Status Tobacco use date assessed 08/07/25 08/07/25 08:33 Patient Tobacco Use Status Former Tobacco user 08/07/25 08:33 Tobacco use type Cigarette 08/07/25 08:33 e-Cigarette/Vaping Use Never Used 08/07/25 08:33 Thrive Assessment: Date of Thrive Assessment Date Thrive assessed 01/26/25 08/07/25 08:33 Currently or been in a relationship where the following occur: No concerns reported Const General: healthy appearing, no acute distress, alert and awake Nutritional Appearance: well nourished Orientation/consciousness: oriented to person, oriented to place and oriented to time HENMT Ears: TM's normal bilaterally General nose exam: Normal nasal mucous membranes and turbinates present Eyes Conjunctivae: conjunctivae normal Sclerae: sclerae normal Pupils: Equal, round and reactive pupils present Neck Neck: Yes no lymphadenopathy and Yes no JVD Thyroid: Thyroid normal Carotids: no bruits Resp Effort & Inspection: normal respiratory effort and not tachypneic Auscultation: no crackles, no rales, no rhonchi and no wheezes Cardio Rate: regular rate Rhythm: regular rhythm Heart sounds: no murmurs and normal S1 and S2 GI Palpation (GI): Soft to palpation, nontender, no hepatomegaly and no splenomegaly Auscultation: normal bowel sounds Skin General skin exam: no rashes or lesions noted and dry skin Neuro General: oriented to person, oriented to place and oriented to time Cranial nerves: Yes Equal, round and reactive pupils present Speech: No Abnormal speech present Gait exam (Neuro): Normal gait present Motor exam (neuro): no tremor noted Extrem Right upper extremity: full ROM Left upper extremity: full ROM Right lower extremity: full ROM; no edema Left lower extremity: full ROM; no edema Psych Mental Status: mental status grossly normal Speech and movement: Normal speech and movement present Affect: normal affect Attitude: cooperative Thought process: Normal thought process present Office Procedures Flu Questionnaire Does the patient have a severe egg allergy?: No Does the patient have severe life threatening allergies?: No Does the patient have a fever or illness today?: No Has the patient ever had Guillain-Pendergrass Syndrome?: No Has the patient ever had any past reaction to a flu shot?: No Results AMB Hemoglobin A1c AMB Hemoglobin A1c 8.1 % Last Edit by STEPHANIE Salazar on 08/07/25 08:42 Immunizations Fluarix [id number] (PF) 45 mcg (15 mcg x 3)/0.5 mL IM syringe Performing Provider: Kyle Guthrie PA-C [facility] Administered by: Barbara Pearson CMA on 08/07/25 09:01 Dose Route Admin Location Dispensed Lot Number Expiration Date [facility] Hydro Generation Manager 0.5 mL IM Left Deltoid 0.5 mL [id number] 04/16/26 [id number] [employer] aka [employer] VIS Given Date VIS Provided VIS Publication Date 08/07/25 Single Vaccine 24 Eligibility Eligibility Date Funding Source Not [facility] Eligible 08/07/25 Private Results Reviewed Results Reviewed: Laboratory Last Values Hgb A1c (Clinic) 8.1 % (4.0-6.0) H 08/07/25 08:26 Coding Level of Care Code Est Pt Level 4 (46089) Diagnoses Diabetic nephropathy associated with type 2 diabetes mellitus E11.21 Essential hypertension I10 Hypertension type: essential hypertension Type 2 diabetes mellitus with hyperglycemia, with long-term current use of insulin E11.65; Z79.4 Diabetes mellitus complication status: with hyperglycemia Diabetes mellitus senior living insulin use: with senior living use Mixed hyperlipidemia E78.2 Hyperlipidemia type: mixed hyperlipidemia Assessment & Plan Assessment & Plan (1) Diabetic nephropathy associated with type 2 diabetes mellitus: Code(s): E11.21 - Type 2 diabetes mellitus with diabetic nephropathy Category: Medical Plan: As per HPI patient is followed by a digital specialist He is on highest dose of EMMA-inhibitor at this time. Blood pressure remains slightly elevated, will add on amlodipine 2.5 for better blood pressure control He has started Jardiance recently and reports this may have caused a bit of dizziness though with further discussion may have been hydrochlorothiazide. (2) HTN (hypertension): Code(s): I10 - Essential (primary) hypertension Category: Medical Qualifiers: Hypertension type: essential hypertension Qualified Code(s): I10 - Essential (primary) hypertension Plan: Patient's blood pressure slightly elevated today in office. He has stopped hydrochlorothiazide due to dizziness. Will add on amlodipine 2.5 mg for blood pressure control. Advised to do more home blood pressure monitoring with goal blood pressure to be below 140/90. (3) Type 2 diabetes mellitus: Code(s): E11.9 - Type 2 diabetes mellitus without complications Category: Medical Qualifiers: Diabetes mellitus complication status: with hyperglycemia Diabetes mellitus senior living insulin use: with gang supervisor pipe lines use Qualified Code(s): E11.65 - Type 2 diabetes mellitus with hyperglycemia; Z79.4 - business solutions architect (current) use of insulin Plan: Patient's type 2 diabetes suboptimally controlled with today's A1c at 8.1. He does see a professor of management in [place] (Dr. Ramirez). Advised on up titrating his long-acting insulin to 18-20 units. He has made dietary changes in was able to reduce his overall blood sugars.. Continues to follow Endocrinology at [facility]. Goal A1c is to be below 7.0 (4) HLD (hyperlipidemia): Code(s): E78.5 - Hyperlipidemia, unspecified Category: Medical Qualifiers: Hyperlipidemia type: mixed hyperlipidemia Qualified Code(s): E78.2 - Mixed hyperlipidemia Plan: Patient's most recent lipid panel showing excellent control of his total cholesterol and LDL. He continues on simvastatin 10 mg with good effect. Goal LDL to remain below 100 Orders: Orders Complete Blood Count no Diff Today I10 - Essential (primary) hypertension Comprehensive [place]. Panel Fast Today I10 - Essential (primary) hypertension Influenza [id number] Immunization Today Z23 - Encounter for immunization AMB Hemoglobin A1c Today E11.65 - Type 2 diabetes mellitus with hyperglycemia, Z79.4 - [facility] (current) use of insulin Lipid Panel Today E78.2 - Mixed hyperlipidemia Medications: New amlodipine 2.5 mg PO DAILY 90 tabs 1RF 90 days I10 - Essential (primary) hypertension Patient Instructions: Goal: A1c to be below 7.0, LDL to remain below 100 Barriers: Adherence to physical activity and healthy eating habits
[2025-08-07 08:27] VITALS: BP 140/70; PULSE 67; TEMP 36.2; O2SAT 99; BMI 22.3
== END 2025-08-07 09:02 | disposition home or self-care (01) ==
LOC: HO.HMCH 08:14
PROVIDERS: PCP Physician Assistant; Visit Provider Physician Assistant
DX: E11.21 Type 2 diabetes mellitus with diabetic nephropathy (principal); I10 Essential (primary) hypertension; E11.65 Type 2 diabetes mellitus with hyperglycemia; Z79.4 Long term (current) use of insulin; E78.2 Mixed hyperlipidemia; Z23 Encounter for immunization

== ENCOUNTER → 2025-08-07 08:12 | Outpatient (BNVA) | payer MEDICARE, SELFPAY | PROVIDERS: PCP Physician Assistant; Visit Provider Physician Assistant | DX: I10 Essential (primary) hypertension (principal); E11.51 Type 2 diabetes mellitus with diabetic peripheral angiopathy without gangrene; E11.21 Type 2 diabetes mellitus with diabetic nephropathy; E11.65 Type 2 diabetes mellitus with hyperglycemia; E78.2 Mixed hyperlipidemia; Z23 Encounter for immunization; Z79.4 Long term (current) use of insulin | CPT/HCPCS: 83036; 90471; 90656; 99212 ==

== ENCOUNTER 2025-08-23 06:07 | Outpatient (REF) | payer MEDICARE, SELFPAY ==
--- OUTSIDE RECORDS SUMMARY | 2025-08-23 06:10 | XMS_ITS | Clinical Summary ---
Author Organization 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 Up to date with [facility]. Labs ordered today Assessment & Plan (06/05/2024 [...] problems with glycemic control. Thinks due for [facility]. Assessment & Plan (10/27/2023 10:31 AM [...] with glycemic control. Up to date with [employer]. Assessment & Plan (08/11/2023 9:19 AM EDT): [...] Refill [facility] [place] [address] Lori Bishop MD Medication Refill from Last [...] AM EST Office Visit [facility] [address] [place] [address] Lori Bishop MD [address] [place] [phone] 12/11/2025 8:00 AM EST Office Visit [facility] [address] [place] [address] [place] [address] [email or web address] Health Maintenance Due Date Last Done Comments [...] Date/Time Associated Diagnosis Comments BASIC METABOLIC PANEL (BMP) Routine 03/30/2025 8:08 AM EDT Type 2 diabetes mellitus with peripheral neuropathy HEMOGLOBIN A1C Routine 12/27/2024 12:40 PM EDT Type 2 diabetes mellitus with peripheral neuropathy from Last 3 Months or Most Recently Relevant to Health Maintenance Results * Basic metabolic panel (03/30/2025 8:08 AM EDT) Blood Lori Bishop MD LAB BLOOD BKR ORDERABL ES Final Result [address] [address] * (ABNORMAL) Hemoglobin A1c (12/27/2024 12:40 PM EDT) HEMOGLOBIN A1C 9.7(H) 4.3 - 5.8 % [facility] Blood 12/27/2024 12:4 0 PM EDT 12/27/2024 12:42 PM EDT Lori Bishop MD LAB BLOOD BKR ORDERABL ES Final Result Performing Organization Address [facility]/ZIP Co de Phone Number [address] [address] from Last 3 Months or Most Recently Relevant to Health Maintenance Insurance [place] BLUE REPLACEMENT MEDICARE PART A & B MEDICARE PART A & B [facility] MEDICARE PPO BLUE REPLACEMENT MEDICARE PART A & B [facility] MEDICARE PPO BLUE REPLACEMENT MEDICARE PART A & B [facility] MEDICARE PPO BLUE REPLACEMENT MEDICARE PART A & [place] [address] MEDICARE PPO BLUE REPLACEMENT MEDICARE PART A & B Care Teams Renewals Specialist Relationship Specialty Start Date End Date Kyle Guthrie PA [address] [place] [phone] PCP - General Physician Gaming Commissioner 01/01/23 Amauri Hassan MD [address] [place] [phone] Nephrology 12/28/24 Additional Source Comments The information contained in this document represents components of the legal health record. It is not the complete legal health record.[facility]
[2025-08-23 07:58] LABS: Alanine Aminotransferase 18 U/L (0-40); Anion Gap 14 (12-20); Aspartate Amino Transferase 17 U/L (5-37); Blood Urea Nitrogen 27 mg/dL (9-16); Calcium 9.5 mg/dL (8.4-10.2); Carbon Dioxide 22 mmol/L (22-29); Chloride 108 mmol/L (96-108); Cholesterol 148 mg/dL (<200); Estimated Glomerular Filt Rate > 60; HDL Cholesterol 48 mg/dL (>40); Potassium 4.0 mmol/L (3.3-5.1); Sodium 140 mmol/L (135-145); Triglycerides 159 mg/dL (<150)
[2025-08-23 08:00] LABS: Microalbum/Creatinine Ratio Ur 122.6 ug/mg cr (<30)
== END 2025-08-23 06:08 | disposition home or self-care (01) ==
LOC: HO.LAB 06:07
PROVIDERS: Absent Provider Physician Assistant; PCP Physician Assistant; Visit Provider Physician Assistant
DX: E11.42 Type 2 diabetes mellitus with diabetic polyneuropathy (principal)
CPT/HCPCS: 36415; 80048; 80061; 82043; 82570; 83036; 84450; 84460

== ENCOUNTER 2025-09-26 10:23 | Outpatient (AMB) | payer MEDICARE, SELFPAY ==
--- NOTE | 2025-09-26 10:42 | HO.NEPHOV_ITS ---
Vital Signs 09/26/25 10:44 Height 5 ft 7 in Weight 146 lb BMI 22.9 BP 130/70 Blood Pressure Location Rt brachial Position Sitting Pulse 71 Pulse Source Pulse Oximeter Pulse Oximetry (%) 98 Oxygen Delivery Method Room Air Intake Visit Reasons: 3mon f/u w/labs-LVM [employer] Required: No Accompanied by: Self / Same As Patient Allergies hydrochlorothiazide Adverse Reaction (Intermediate, Verified 09/26/25 10:43) dizziness HPI Comments Details: Lionel was seen in follow for his mildly proteinuric CKD as well as hypertension. He has diabetes for a long time. He denies any retinopathy but complaints of lower extremity vascular symptoms. He denies any coronary artery disease, congestive heart failure, CVA, CHF, renal artery stenosis, carotid stenosis. He has no epistaxis, photosensitivity, joint swellings, skin rashes, hematuria or pedal edema. He has been tolerating EMMA inhibitor. He is on any SGLT2 inhibitor. He denies any chest pain, shortness of breath, paroxysmal nocturnal dyspnea, orthopnea or orthostatic symptoms. He denied any family history of renal diseases. He denies any new bone pain or history of renal calculi. [facility] Medical History Diverticulosis Tubular adenoma HTN (hypertension) Diabetes Surgical History Hx of colonoscopy No pertinent past surgical history Family History Mother Hypertension Father Hypertension Stroke Social History Housing: House Alcohol intake: former Patient Tobacco Use Status: Former Tobacco user Tobacco use type: Cigarette e-Cigarette/Vaping Use: Never Used Second Hand Smoke Exposure: Yes Substance Use Type: Marijuana service: No Current occupational status: retired Cognitive needs: No Hearing needs: No Vision needs: Yes (Glasses) Review of Systems Const All systems reviewed & are unremarkable except as noted in HPI and below Physical Exam Vital Signs: Last Vital Signs Pulse 71 09/26/25 10:44 BP 170/60 H 09/26/25 10:44 Pulse Ox 98 09/26/25 10:44 Oxygen Delivery Method Room Air 09/26/25 10:44 BMI result Body Mass Index 22.9 Const General: comfortable and no acute distress Orientation/consciousness: patient oriented x3 HEENT Head: Yes normocephalic Mouth: Normal oral and palatal mucosa present Eyes EOM: EOMs intact bilaterally Neck Neck: Yes supple Resp Auscultation: clear to auscultation bilaterally Cardio Jugular venous distension: no JVD Rate: regular rate GI Palpation (GI): Soft to palpation Auscultation: normal bowel sounds General: Yes no CVA tenderness Back/Spine/Pelvis Back: no CVA tenderness Skin General skin exam: no rashes or lesions noted Neuro General: patient oriented x3 and moves all extremities Extrem General: Yes no pedal edema Results Reviewed Nephrology Results: Hgb, (14.0-18.0) 13.6 g/dl L 02/13/25 WBC, (4.8-10.8) 8.1 X10*3/uL 02/13/25 Plt Count, (160-400) 253 X10*3/uL 02/13/25 Sodium, (135-145) 140 mmol/L 08/23/25 Potassium, (3.3-5.1) 4.0 mmol/L 08/23/25 Chloride, (96-108) 108 mmol/L 08/23/25 Carbon Dioxide, (22-29) 22 mmol/L 08/23/25 BUN, (9-16) 27 mg/dL H 08/23/25 Creatinine, (0.5-1.4) 1.13 mg/dL 08/23/25 Calcium, (8.4-10.2) 9.5 mg/dL 08/23/25 Urine Creatinine 89.72 mg/dL 08/23/25 Protein/Creatinin Ratio, (<0.2) 0.12 06/22/25 Assessment & Plan Assessment & Plan (1) HTN (hypertension): Code(s): I10 - Essential (primary) hypertension Category: Medical Qualifiers: Hypertension type: essential hypertension Qualified Code(s): I10 - Essential (primary) hypertension (2) Diabetic nephropathy associated with type 2 diabetes mellitus: Code(s): E11.21 - Type 2 diabetes mellitus with diabetic nephropathy Category: Medical Plan Lionel has 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 He is on EMMA inhibitor. His renal functions are stable. He should continue lisinopril 40 mg daily . I started him on Jardiance 10 mg daily which I will increase to 25 mg with time. I ordered blood work in follow-up. I asked him to avoid nonsteroidal anti-inflammatories and maintain good hydration. I answered all his questions. Follow-up appointment given. Orders: Orders Creatinine 4 Months E11. - Type 2 diabetes mellitus with diabetic nephropathy, I10 - Essential (primary) hypertension Blood Urea Nitrogen 4 Months E11. - Type 2 diabetes mellitus with diabetic nephropathy, I10 - Essential (primary) hypertension Electrolytes 4 Months E11. - Type 2 diabetes mellitus with diabetic nephropathy, I10 - Essential (primary) hypertension Medications: Changed From empagliflozin (Jardiance) 10 mg PO DAILY 30 days 30 tabs 6RF To empagliflozin (Jardiance) 10 mg PO DAILY 90 tabs 6RF 90 days Coding Level of Care Code Est Pt Level 4 (48522) Diagnoses Essential hypertension I10 Hypertension type: essential hypertension Diabetic nephropathy associated with type 2 diabetes mellitus
[2025-09-26 10:44] VITALS: BP 130/70; PULSE 71; O2SAT 98; BMI 22.9
== END 2025-09-26 11:03 | disposition home or self-care (01) ==
LOC: HO.HKA 10:24
PROVIDERS: PCP Physician Assistant; Visit Provider Internal Medicine Nephrology
DX: I10 Essential (primary) hypertension (principal); E11.21 Type 2 diabetes mellitus with diabetic nephropathy
CPT/HCPCS: 99214

== ENCOUNTER → 2025-09-26 10:23 | Outpatient (BNVA) | payer MEDICARE, SELFPAY | PROVIDERS: PCP Physician Assistant; Visit Provider Internal Medicine Nephrology | DX: I12.9 Hypertensive chronic kidney disease with stage 1 through stage 4 chronic kidney disease, or unspecified chronic kidney disease (principal); E11.22 Type 2 diabetes mellitus with diabetic chronic kidney disease; N18.9 Chronic kidney disease, unspecified; Z79.899 Other long term (current) drug therapy | CPT/HCPCS: 99212 ==